=== PATIENT | female | born 1945 | race Caucasian/White ===

== ENCOUNTER 2019-03-24 12:38 | Inpatient (IN) ==
[2019-03-24] MEDS ORDERED: TYLENOL PO PRN ×2 (13:04→21:58)
[2019-03-24] MEDS ORDERED: ZOFRAN IV PRN (13:04)
[2019-03-24] MEDS ORDERED: M.V.I.-12 10 ML, FOLIC ACID 1 MG, MAGNESIUM SULFATE 1 GM, THIAMINE 100 MG in NS 1,000 ML IV ONE (14:00)
[2019-03-24 14:39] LABS: HEMATOCRIT 32.9 % (37.0-47.0); MCH 28.6 PG (27-31); MCHC 33.4 g/dL (33-37); MCV 85.5 FL (81-99); MPV 11.2 FL (7.4-10.4); RBC 3.85 XMIL (4.2-5.4); RDW 12.2 % (11.5-14.5); WBC 6.93 X1000 (4.8-10.8)
[2019-03-24 14:54] LABS: AGAP 11; BUN 25 mg/dL (8-22); CALCIUM 9.5 mg/dL (8.8-10.2); CHLORIDE 97 mmol/L (98-107); COSMO 270; CREATININE 0.5 mg/dL (0.5-0.9); ESTIMATED GFR > 60; GLUCOSE 81 mg/dL (70-104); POTASSIUM 4.4 mmol/L (3.5-5.1); SODIUM 133 mmol/L (136-145); TCO2 25 mmol/L (25-35)
[2019-03-24 17:23] LABS: BILIRUBIN URINE NEGATIVE (NEGATIVE); BLOOD URINE TRACE (NEGATIVE); CLARITY VERY CLOUDY (CLEAR); COLOR YELLOW; GLUCOSE URINE NEGATIVE (NEGATIVE); KETONE URINE NEGATIVE (NEGATIVE); LEUKOCYTES URINE 2+ (NEGATIVE); NITRITE URINE POSITIVE (NEGATIVE); PH URINE 6.5; PROTEIN URINE NEGATIVE (NEGATIVE); SP GRAVITY URINE 1.005; UROBILINOGEN URINE NORMAL
[2019-03-24 17:31] LABS: URINE BACTERIA 3+ /HFP; URINE CAST NONE SEEN /LPF; URINE CRYSTAL NONE SEEN /HPF; URINE EPITHELIAL CELLS <10 /HPF (<10); URINE RBC <10 /HPF (<10); URINE SOURCE CLEAN CATCH; URINE WBC TNTC /HPF (<10); URINE YEAST NONE SEEN /HPF
[2019-03-24] MEDS: CELEXA PO SCH (22:33)
[2019-03-24] MEDS: XANAX PO PRN (22:33)
[2019-03-25 06:24] LABS: HEMATOCRIT 30.4 % (37.0-47.0); HEMOGLOBIN 9.9 g/dL (12.0-16.0); MCHC 32.6 g/dL (33-37); MCV 86.1 FL (81-99); MPV 11.2 FL (7.4-10.4); RBC 3.53 XMIL (4.2-5.4); RDW 12.4 % (11.5-14.5); WBC 5.09 X1000 (4.8-10.8)
[2019-03-25] MEDS: SYNTHROID PO SCH (06:26)
[2019-03-25] MEDS: PRILOSEC PO SCH (06:26)
[2019-03-25 06:30] LABS: AGAP 7; ALBUMIN 3.4 g/dL (3.5-5.0); ALKALINE PHOSPHATASE 60 U/L (32-104); BUN 21 mg/dL (8-22); CALCIUM 9.1 mg/dL (8.8-10.2); CHLORIDE 103 mmol/L (98-107); COSMO 274; CREATININE 0.4 mg/dL (0.5-0.9); ESTIMATED GFR > 60; GLUCOSE 86 mg/dL (70-104); GOT 26 U/L (10-30); GPT 23 U/L (10-36); MAGNESIUM 1.7 mg/dL (1.5-2.7); POTASSIUM 4.2 mmol/L (3.5-5.1); SODIUM 136 mmol/L (136-145); TCO2 27 mmol/L (25-35); TOTAL PROTEIN 6.2 g/dL (6.3-8.3)
[2019-03-25] MEDS ORDERED: ROCEPHIN 1 GM in NS 50 ML IV SCH (06:45)
[2019-03-25] MEDS ORDERED: BENADRYL IV ONE (07:08)
[2019-03-25] MEDS: THERA M PLUS PO SCH (09:20)
[2019-03-25] MEDS: RESTASIS 0.05% OPH DROPS BOTH EYES SCH ×2 (09:20→22:13)
[2019-03-25] MEDS: XANAX PO PRN ×2 (09:48→22:20)
[2019-03-25] MEDS: NORVASC PO SCH (09:48)
--- NOTE | 2019-03-25 19:37 | HISTORY AND PHYSICAL ---
CHIEF COMPLAINT: Fatigue, falling. HISTORY OF PRESENT ILLNESS: The patient is a 73-year-old female who presented to the hospital secondary to frequent falls and fatigue. She has been unable to carry out activities of daily living. She has a known Zenker diverticulum which has to have surgery to fix, but she has been too weak to eat or swallow lately. She notes that she had a great decrease in her oral intake. ALLERGIES: Fish; iodine causing anaphylaxis; penicillin causing nausea; sulfa causing a rash. MEDICATIONS: Xanax, Norvasc 10, Celexa 20, Zocor 20, Restasis eyedrops, Synthroid 88, Cozaar 100. PAST MEDICAL HISTORY: Significant for hypertension, hypothyroidism, chronic anxiety, frequent episodes of depression, high cholesterol. She has had a stroke in the past which has left her with dysarthric speech. She does have difficulty swallowing, initially from her stroke, now exacerbated by her Zenker diverticula. PAST SURGICAL HISTORY: Hysterectomy. REVIEW OF SYSTEMS: As noted above. The patient notes she has had a decreased oral intake. She has had fatigue. No fevers or chills. Denies any dysuria. No frequency or urgency. Denies constipation, melena or hematochezia. Denies chest pain or palpitations. She notes that she has been falling frequently. She has been unable to ambulate secondary to her fatigue. Denies chest pains or palpitations. Denies any change in her focal neurologic issues from her stroke. She does note that her swallowing has continued to worsen. FAMILY HISTORY: She has a family history of hypertension. SOCIAL HISTORY: The patient lives in assisted living. She does not smoke or drink. PHYSICAL EXAMINATION: VITAL SIGNS: Reviewed. She is afebrile. Blood pressure is stable. Heart rate is 80s, respiratory rate 20. GENERAL: The patient is very pleasant to talk with. She is in no respiratory distress. HEENT: Normocephalic. NECK: Supple. CARDIOVASCULAR: Regular rate. No murmurs. CHEST: Clear, nonlabored. ABDOMEN: Soft, nondistended. EXTREMITIES: She is noted to move all extremities with generalized weakness. SKIN: No rashes. LABORATORY DATA: Pending. ASSESSMENT: 1. Generalized weakness with frequent falls. 2. Adult failure to thrive. 3. Decreased oral intake. 4. Zenker diverticulum. 5. Hypertension. 6. Hypothyroidism. 7. High cholesterol. 8. Anxiety and depression. 9. Others. PLAN: We will continue the patient in the hospital, place her on IV fluids. Check her labs. It certainly appears as though she may have a urinary infection. We will place her on antibiotics, and we will follow. cc: Gurinder Wills MD
[2019-03-25] MEDS: CELEXA PO SCH (22:14)
[2019-03-26] MEDS: SYNTHROID PO SCH (06:06)
[2019-03-26] MEDS: PRILOSEC PO SCH (07:20)
[2019-03-26] MEDS ORDERED: LEVAQUIN 500 MG/D5W 500 MG/100 ML IVPB IV ONE (08:30)
[2019-03-26] MEDS ORDERED: M.V.I.-12 10 ML, FOLIC ACID 1 MG, MAGNESIUM SULFATE 1 GM, THIAMINE 100 MG in NS 1,000 ML IV ONE (08:30)
[2019-03-26] MEDS: NORVASC PO SCH (08:51)
[2019-03-26] MEDS: THERA M PLUS PO SCH (08:51)
[2019-03-26] MEDS: RESTASIS 0.05% OPH DROPS BOTH EYES SCH ×2 (08:51→21:40)
[2019-03-26] MEDS: XANAX PO PRN ×2 (08:56→21:43)
[2019-03-26] MEDS ORDERED: LEVAQUIN PO SCH (09:00)
[2019-03-26] MEDS: CELEXA PO SCH (21:40)
--- NOTE | 2019-03-26 23:34 | PROGRESS NOTE ---
DATE: 03/26/2019 SUBJECTIVE: Patient overall notes that she is starting to feel a little bit better. Still feels very tired, fatigued, has not really been out of bed and ambulating. Denies any chest pain, palpitations, fevers or chills. OBJECTIVE/EXAM: Vital signs: Temperature 97.5, pulse 80, respirations 20, BP 135/90. General: Patient is awake, alert. She is pleasant to talk with. She is in no respiratory distress. HEENT: Normocephalic. Neck: Supple. CARDIOVASCULAR: Regular rate. No murmurs. Chest: Nonlabored.. Abdomen: Soft, nondistended. ASSESSMENT: 1. Klebsiella urinary tract infection. 2. Hypothyroidism, TSH is elevated at 0.1. We will decrease her Synthroid. PLAN: Continue antibiotics. Physical therapy. IV fluids and will follow. Hopefully, home over 1 or 2 days. cc: Gurinder Wills MD
[2019-03-27] MEDS: PRILOSEC PO SCH (06:26)
[2019-03-27] MEDS ORDERED: NS 1,000 ML IV SCH (08:15)
[2019-03-27] MEDS: RESTASIS 0.05% OPH DROPS BOTH EYES SCH ×2 (09:40→21:47)
[2019-03-27] MEDS: NORVASC PO SCH (09:40)
[2019-03-27] MEDS: THERA M PLUS PO SCH (09:40)
[2019-03-27] MEDS ORDERED: NS 250 ML IV SCH (09:45)
[2019-03-27] MEDS: LEVAQUIN PO SCH (18:43)
[2019-03-27] MEDS: XANAX PO PRN (21:47)
[2019-03-27] MEDS: CELEXA PO SCH (21:48)
[2019-03-27] MEDS ORDERED: IMODIUM PO PRN (23:06)
[2019-03-27] MEDS: IMODIUM PO PRN (23:42)
--- NOTE | 2019-03-28 00:53 | PROGRESS NOTE ---
DATE: 03/27/2019 SUBJECTIVE: The patient has no new complaints today. She states overall she may be feeling a little bit better. She is still having difficulty swallowing, even liquids. Denies any fevers or chills. OBJECTIVE: Vital Signs: Temperature 98.2, pulse 86, respiratory 18, BP 134/64. General: The patient is awake, alert, in no distress. HEENT: Normocephalic. Neck: Supple. Cardiovascular: Regular rate. Chest: Clear, nonlabored. Abdomen: Soft. Extremities: Moves all extremities. ASSESSMENT: 1. Generalized weakness. 2. Klebsiella urinary tract infection currently on Levaquin. 3. Hyperthyroidism. We will continue to hold Synthroid as his thyroid stimulating is low at 0.1. 4. Adult failure to thrive. 5. Zenckers diverticulum. 6. Hypertension. PLAN: We will continue the patient in the hospital. We will begin making plans for discharge. We will continue Levaquin for a total 7-day course. cc: Gurinder Wills MD MTDD
[2019-03-28] MEDS: PRILOSEC PO SCH (07:37)
[2019-03-28] MEDS: THERA M PLUS PO SCH (08:22)
[2019-03-28] MEDS: NORVASC PO SCH (08:23)
[2019-03-28] MEDS: LEVAQUIN PO SCH (08:32)
[2019-03-28] MEDS: RESTASIS 0.05% OPH DROPS BOTH EYES SCH (08:33)
[2019-03-28] MEDS: IMODIUM PO PRN (09:50)
[2019-03-28 11:23] VITALS: BP 145/61
--- NOTE | 2019-03-29 06:21 | DISCHARGE SUMMARY ---
ADMISSION DATE: 03/24/2019 DISCHARGE DATE: 03/28/2019 DISCHARGE DIAGNOSES: 1. Nausea and vomiting. 2. Abdominal pain. 3. Klebsiella urinary tract infection. 4. Adult failure to thrive. 5. Generalized weakness. 6. Decreased oral intake secondary to Zenker's diverticulum. 7. Zenker's diverticulum. 8. Others. HOSPITAL COURSE: The patient seen and examined by myself, full note dictated and discussed with nurse practitioner. The patient was admitted to the hospital, placed on IV fluids, antibiotics. Thankfully, she had an uneventful hospital course, prolonged secondary to her age and her inability to swallow due to her Zenker's diverticula. We will discharge her home. Please see full note. cc: Gurinder Wills MD
--- NOTE | 2019-03-29 08:05 | DISCHARGE SUMMARY ---
ADMISSION DATE: 03/24/2019 DISCHARGE DATE: 03/28/2019 ADMISSION DIAGNOSES: 1. Generalized weakness with frequent falls. 2. Adult failure to thrive. 3. Decreased oral intake. 4. Zenker diverticulum. 5. Hypertension. 6. Hypothyroidism. 7. Hypercholesterolemia. 8. Anxiety and depression. DISCHARGE DIAGNOSES: 1. Generalized weakness with frequent falls. 2. Adult failure to thrive. 3. Decreased oral intake. 4. Zenker diverticulum. 5. Hypertension. 6. Hypothyroidism. 7. Hypercholesterolemia. 8. Anxiety and depression. 9. Klebsiella urinary tract infection. CONSULTATIONS: None. DIAGNOSTIC PROCEDURES AND FINDINGS: None. HOSPITAL COURSE: Ms. Miguel is a 73-year-old female who presented with frequent falls and fatigue. She has had a difficult time carrying on her activities of daily living. She has been a little too weak to eat or swallow recently. She came into the ER and was noted to have urinary tract infection and was volume depleted. She was admitted and started on antibiotics and IV fluids. With antibiotics, she improved as well as fluids and increased p.o. intake. Overall, she has improved to the point now where she can be discharged home with home health. DISCHARGE MEDICATIONS: 1. Xanax range of 0.25 to 0.5 mg p.o. t.i.d. as needed. 2. Norvasc 10 mg daily. 3. Citalopram 20 mg at bedtime. 4. Zocor 20 mg at bedtime. 5. Restasis 1 drop OP b.i.d. 6. Cozaar 100 mg daily. 7. Centrum Silver 1 daily. 8. Omeprazole 20 mg daily. 9. Tylenol 650 mg p.o. q.4 hours as needed pain or fever. 10.Levaquin p.o. daily for 7 days. DISCHARGE ACTIVITY: Resume activity as tolerated. DISCHARGE DIET: Regular. DISPOSITION AND OTHER DISCHARGE INSTRUCTIONS: The patient has been discharged home with home health. She is to follow up with her PCP who is Dr. Wills as directed. She is to continue antibiotics to completion and return to the ER or call 911 for worsening complaints or concerns. All questions answered. Discharge time greater than 35 minutes. Dictated by CHIRAG Antunez for Gurinder Wills MD cc: Manjeet J. CHIRAG Du MD
== END 2019-03-28 12:01 | disposition home health service (06) | DRG 641 ==
LOC: P.DIRADM 12:38 → P.MEDSURG 13:08
PROVIDERS: ATTEND Family Medicine
CPT/HCPCS: 36415; 80048; 80053; 81001; 82948; 83735; 84443; 85027; 87077; 87088; 87186; 87324; 94761; A9270; J0696; J1200; J1956; J3411; J3475; J7030; J7050; XXXXX

== ENCOUNTER 2019-04-03 11:17 | Inpatient (IN) ==
[2019-04-03 12:25] LABS: BASO# 0.02 X1000 (0.0-0.2); BASO% 0.4 % (0.0-0.8); EOS# 0.14 X1000 (0.0-0.7); EOS% 2.8 % (0.0-10.0); HEMATOCRIT 32.4 % (37.0-47.0); HEMOGLOBIN 10.8 g/dL (12.0-16.0); IMM GRAN# 0.01 X1000 (0.0-0.04); IMM GRAN% 0.2 % (0.0-0.5); LYMPH# 1.54 X1000 (1.2-3.4); LYMPH% 31.1 % (20.5-51.1); MCHC 33.3 g/dL (33-37); MCV 87.1 FL (81-99); MONO# 1.15 X1000 (0.11-0.59); MONO% 23.2 % (1.7-9.3); MPV 11.8 FL (7.4-10.4); NEUT# 2.09 X1000 (1.4-6.5); NEUT% 42.3 % (42.2-75.2); PLT 124 X1000 (130-400); RBC 3.72 XMIL (4.2-5.4); RDW 12.3 % (11.5-14.5); WBC 4.95 X1000 (4.8-10.8)
[2019-04-03 12:43] LABS: AGAP 17; ALBUMIN 3.3 g/dL (3.5-5.0); ALKALINE PHOSPHATASE 56 U/L (32-104); BUN 25 mg/dL (8-22); CALCIUM 9.3 mg/dL (8.8-10.2); CHLORIDE 94 mmol/L (98-107); COSMO 269; CREATININE 0.6 mg/dL (0.5-0.9); ESTIMATED GFR > 60; GLUCOSE 61 mg/dL (70-104); GOT 31 U/L (10-30); GPT 21 U/L (10-36); LIPASE 23 U/L (13-60); POTASSIUM 4.4 mmol/L (3.5-5.1); SODIUM 133 mmol/L (136-145); TCO2 23 mmol/L (25-35); TOTAL PROTEIN 6.8 g/dL (6.3-8.3)
[2019-04-03 14:36] LABS: BILIRUBIN URINE NEGATIVE (NEGATIVE); BLOOD URINE NEGATIVE (NEGATIVE); CLARITY CLEAR (CLEAR); COLOR YELLOW; GLUCOSE URINE NEGATIVE (NEGATIVE); KETONE URINE TRACE mg/dL (NEGATIVE); LEUKOCYTES URINE TRACE (NEGATIVE); NITRITE URINE NEGATIVE (NEGATIVE); PROTEIN URINE NEGATIVE (NEGATIVE); UROBILINOGEN URINE NORMAL
--- NOTE | 2019-04-03 14:45 | PROVIDER DOCUMENTATION ---
This chart was entered by Radha Sweeney Scribe, acting as scribe for Satnam Bustamante MD. HPI-Abdominal Pain/GI Problem - General Chief Complaint: Diarrhea Stated Complaint: MALNOURISHED/DIAREAHA Time Seen by Provider: 04/03/19 12:54 Source: patient Allergies/Adverse Reactions: Patient Allergies Allergy/AdvReac Type Severity Reaction Status Date / Time ceftriaxone [From Rocephin] Allergy ANAPHYLAXIS Verified 03/25/19 07:18 fish derived Allergy ANAPHYLAXIS Verified 04/30/18 13:19 iodine AdvReac ANAPHYLAXIS Verified 04/30/18 13:19 Penicillins AdvReac NAUSEA/VOMI Verified 04/30/18 13:19 TING Sulfa (Sulfonamide AdvReac RASH Verified 04/30/18 13:19 Antibiotics) Home Medications: Home Medication List Medication Instructions Recorded Confirmed Last Taken Type Alprazolam [Xanax] 0.25 - 0.5 mg PO TID PRN 09/27/14 03/24/19 04/12/18 12:00 History Amlodipine [Norvasc] 10 mg PO DAILY 09/27/14 03/24/19 04/12/18 09:00 History Citalopram [Celexa] 20 mg PO HS 09/27/14 03/24/19 04/12/18 09:00 History Simvastatin [Zocor] 20 mg PO QHS 01/14/16 03/24/19 04/11/18 21:00 History Cyclosporine [Restasis] 1 drop OP BID 09/19/17 03/24/19 04/12/18 09:00 History Acetaminophen [Tylenol] 650 mg PO Q4-6H PRN PRN 02/24/18 03/24/19 Unknown History Losartan Potassium [Cozaar] 100 mg PO DAILY 02/24/18 03/26/19 04/12/18 09:00 History Multivitamins/Minerals [Centrum 1 each PO DAILY 02/24/18 03/24/19 04/12/18 09:00 History Silver] Omeprazole [Prilosec] 20 mg PO DAILY@0700 02/24/18 03/24/19 04/12/18 07:00 Histo ry Levofloxacin [Levaquin] 500 mg PO DAILY #7 tab 03/28/19 Unknown Rx - History of Present Illness-ABD Nature of Presenting Problems: Pt is 73/F presenting to ED w/ diarrhea, weakness, no appetite and dehydration that has been present for the last 3 weeks. She was released from [facility] a week ago after having diverticulitis. Pt denies any dark stools. Abdominal Pain Onset Location: reports: other (no pain noted) Quality of Pain: reports: none Severity in ED: reports: moderate Onset/Duration: reports: gradual (started 3 weeks [employer]) Timing: reports: still present Activities at Onset: reports: none Exposure to sick contacts?: No Modifying Factors: improves with: nothing Associated Symptoms: reports: fatigue, loss of appetite, weakness. denies: nausea, shortness of breath, vomiting Last BM: unsure Dark Stools Present?: reports: other (yellow stools present) Rectal Bleeding: reports: none Bruising or Bleeding Gums?: No Similar Symptoms Previously?: No Recently seen or treated by another doctor?: No Review of Systems - Adult - REVIEW OF SYSTEMS - ADULT Constitutional: reports: no symptoms reported. denies: chills, fever Eyes: reports: no symptoms reported Ears, Nose, Mouth & Throat: reports: no symptoms reported Cardiovascular: reports: no symptoms reported Respiratory: reports: no symptoms reported Gastrointestinal: reports: diarrhea. denies: abdominal pain, constipation, nausea, vomiting Genitourinary: reports: no symptoms reported Musculoskeletal: reports: no symptoms reported Integumentary: reports: no symptoms reported Neurological: reports: no symptoms reported Psychiatric: reports: no symptoms reported Endocrine: reports: no symptoms reported Hematologic/Lymphatic: reports: no symptoms reported Allergic/Immunologic: reports: no symptoms reported All Other Systems: Reviewed and Negative Past History - Adult - PAST MEDICAL HISTORY-ADULT Review of Records: reports: Old Records Reviewed, Nursing Assessment Review, Medications Reviewed, Social history reviewed & non-contributory. Major Childhood Illnesses: reports: denies history Cardiovascular: reports: HTN Respiratory: reports: denies history Gastrointestinal: reports: denies history Obstetrical/Gynecological: reports: denies history Genitourinary: reports: denies history Musculoskeletal: reports: denies history Neurological: reports: CVA, stroke deficits (slurred speech, trouble swallowing) Endocrine/Immune: reports: thyroid disorder Other Conditions: reports: denies history - PRIOR SURGERIES/PROCEDURES Surgical/Procedure History: reports: hysterectomy - IMMUNIZATION STATUS Childhood Immunizations: See Nurse Assessment Flu Vaccine: See Nurse Assessment - FAMILY HISTORY Family History: reviewed, not pertinent - SOCIAL HISTORY Smoking: denies, non-smoker Substance Use: none/never Alcohol Use Frequency: never Living Situation: alone Physical Exam-General - PHYSICAL EXAM-ADULT Initial Vital Signs Reviewed: Yes - CONSTITUTIONAL General Appearance: alert, no apparent distress, thin, other (Pt has L sided weakness and speech deficits from prior CVA in 2006) - EYES Eyes: PERRL/EOMI, pink conjunctivae - HEAD, EARS, NOSE, MOUTH & THROAT HENMT: moist mucous membranes - NECK Neck: non-tender, full range of motion, supple, normal inspection - RESPIRATORY Respiratory: lungs clear - CARDIOVASCULAR Cardiovascular: regular rate, rhythm - GASTROINTESTINAL (ABDOMEN) Abdominal Exam: normal bowel sounds, non tender, soft - LYMPHATIC Lymphatic: no adenopathy - MUSCULOSKELETAL Back Exam: normal inspection, no CVA tenderness, no vertebral tenderness Extremity: normal range of motion, non-tender, normal gait, normal inspection - SKIN Integumentary: normal color, warm/dry - NEUROLOGIC Neurologic: grossly normal - PSYCHIATRIC Psych/Mental Status: normal mood/affect, normal thought content, normal thought process, oriented x 3 Progress - PLAN OF CARE/RESULTS Progress/Plan/Lab Results: Vital Signs - 8 hr 04/03/19 11:22 04/03/19 11:44 Temperature 99.3 F 98.8 F Pulse Rate 85 87 Respiratory Rate 18 20 Blood Pressure 109/58 133/73 O2 Sat by Pulse Oximetry 96 97 Laboratory Results - last 24 hr 04/03/19 04/03/19 04/03/19 12:00 12:00 12:00 WBC 4.95 RBC 3.72 L Hgb 10.8 L Hct 32.4 L MCV 87.1 MCH 29.0 MCHC 33.3 RDW Std Deviation 12.3 Plt Count 124 L MPV 11.8 H Immature Gran % (Auto) 0.2 Neut % (Auto) 42.3 Lymph % (Auto) 31.1 Armstrong % (Auto) 23.2 H Eos % (Auto) 2.8 Baso % (Auto) 0.4 Immature Gran # (Auto) 0.01 Neut # (Auto) 2.09 Lymph # (Auto) 1.54 Armstrong # (Auto) 1.15 H Eos # (Auto) 0.14 Baso # (Auto) 0.02 Sodium 133 L Potassium 4.4 Chloride 94 L Carbon Dioxide 23 L Anion Gap 17 BUN 25 H Creatinine 0.6 Estimated GFR/1.73 m2 > 60 BUN/Creatinine Ratio 42 Glucose 61 L Calculated Osmolality 269 Calcium 9.3 Total Bilirubin 0.50 AST 31 H ALT 21 Alkaline Phosphatase 56 Total Protein 6.8 Albumin 3.3 L Globulin 4.0 Albumin/Globulin Ratio 1.0 Amylase 48 Lipase 23 Orders Category Date Time Status Saline Loc DIRECTED Care 04/03/19 12:13 Active NPO Diet 04/03/19 12:13 Active AMYLASE [CHEM] Stat Lab 04/03/19 12:00 Completed CBC WITH ELECTRONIC DIFF [HEME] Stat Lab 04/03/19 12:00 Completed COMPREHENSIVE METABOLIC PANEL [CHEM] Stat Lab 04/03/19 12:00 Completed LIPASE [CHEM] Stat Lab 04/03/19 12:[address] W/POSS RFLX CULT [URINALYSIS] Stat Lab 04/03/19 12:13 Uncollected Result Diagrams: 04/03/19 12:00 04/03/19 12:00 - CONSULTS/PCP/HOSPITALIST Notification #1 *Consult/PCP/Hospitalist*: MARIA C Time Discussed: 14:44 Consult Disposition: Admit Departure - Departure Date of Disposition Decision: 04/03/19 Time of Disposition Decision: 14:44 DIAGNOSIS: Weakness, Diarrhea, Failure of outpatient treatment, Difficulty swallowing Disposition: ADMITTED INPATIENT 09 Certified Medical Emergency: Emergent Condition: Stable - Critical Care Note This patient required my direct & personal management of CC.: No Attestation - Physician/ ESTUARDO Attestation Patient care was provided by Advanced Practice Provider:: No The physician spent face to face time with patient:: Yes Advanced Practice Provider documentation review:: Supervising physician onsite and consulted in the evaluation and care of this patient. The physician did have a face to face encounter with the patient. This chart was documented by the indicated scribe, (Radha Sweeney Scribe) and accurately reflects the services I performed and decisions made by me, Satnam Bustamante MD, as attested by the provider's signature.
[2019-04-03 14:48] LABS: URINE BACTERIA 1+ /HFP; URINE CAST NONE SEEN /LPF; URINE CRYSTAL NONE SEEN /HPF; URINE EPITHELIAL CELLS <10 /HPF (<10); URINE SOURCE CATH; URINE WBC <10 /HPF (<10); URINE YEAST NONE SEEN /HPF
[2019-04-03] MEDS: NS 1,000 ML IV SCH (21:11)
[2019-04-03] MEDS: TYLENOL PO PRN (23:28)
--- NOTE | 2019-04-04 10:48 | HISTORY AND PHYSICAL ---
CHIEF COMPLAINT: Nausea. HISTORY OF PRESENT ILLNESS: The patient is a 73-year-old female who was just in the hospital for urinary tract infection. She has a known history of cerebrovascular accident with expressive aphasia as well as esophageal dysmotility, and a known Zenker's diverticulum. She was admitted, and then placed on antibiotics, and tolerated that okay. She was drinking on discharge. However, after getting home, she states that she has not been able to eat or drink. She has been having diarrhea every day. She has been having vomiting, and generalized fatigue. She states she has been lightheaded and having difficulty carrying out her activities of daily living. SOCIAL HISTORY: Patient is a . She lives at home. She does not smoke or drink. ALLERGIES: Rocephin. Fish causing anaphylaxis. Iodine causing anaphylaxis. Penicillin causing nausea and vomiting. Sulfa causing a rash. MEDICATIONS: 1. Xanax 3 times a day p.r.n. 2. Norvasc 10 mg. 3. Celexa 20 mg. 4. Zocor 20 mg. 5. Restasis eyedrops. 6. Tylenol p.r.n. 7. Cozaar 100. 8. Losartan 100 mg daily. 9. Multivitamin. 10. She was on Synthroid 88, that has recently been stopped as her TSH was elevated. FAMILY HISTORY: Noncontributory. PAST MEDICAL HISTORY: Significant for hypothyroidism, hypertension, chronic anxiety, depression, history of cerebrovascular accident with expressive aphasia, esophageal dysmotility, Zenker's diverticulum, and adult failure to thrive. REVIEW OF SYSTEMS: As noted above, the patient complains of persistent nausea and persistent vomiting. She states everything she eats and everything she drinks, she throws back up. States she has been unable to keep anything down for several days. Denies any fevers or chills recently. Denies any cough or congestion from a upper respiratory standpoint. She does state that she frequently has a cough after she eats. Denies any urinary complications. Denies any dysuria, frequency, urgency, constipation, melena, or hematochezia. Denies blood in her stool, or blood in her emesis. States she has diarrhea every day. Denies any skin rashes. PHYSICAL EXAMINATION: VITAL SIGNS: Reviewed and stable. She is afebrile. Temperature 99.3 degrees, pulse 85, respiratory 20, BP 109/58 to 133/73, and satting 96 to 97% on room air. GENERAL: Patient is awake and alert. She is in no current respiratory distress. HEENT: Normocephalic. NECK: Supple. CARDIOVASCULAR: Regular rate and rhythm. No murmurs. LUNGS: Chest clear and nonlabored. ABDOMEN: Soft. Nondistended. EXTREMITIES: Moves all extremities. NEUROLOGIC: No focal changes. ASSESSMENT: 1. Nausea and vomiting. 2. Hyponatremia. 3. Recent urinary tract infection. We will repeat urine culture. We will not restart antibiotics until culture is returned. 4. Hyperglycemia. Blood sugars 61. 5. Hypertension. Blood pressures actually are fairly well-controlled despite not being or medications. 6. History of cerebrovascular accident with expressive aphasia. 7. Esophageal dysmotility. 8. Diarrhea. 9. Generalized weakness. PLAN: We will continue patient in the hospital, place her on IV fluids. We will not start antibiotics currently. We will continue to follow, and get physical therapy involved. We will check stool for C. Diff. cc: Gurinder Wills MD
[2019-04-04] MEDS: THERA M PLUS PO SCH (11:06)
[2019-04-04] MEDS: DETROL LA PO SCH (11:07)
[2019-04-04] MEDS: XANAX PO PRN ×2 (11:07→20:12)
[2019-04-04] MEDS: ZOFRAN ODT PO PRN ×2 (11:07→20:12)
[2019-04-04] MEDS: NS 1,000 ML IV SCH (11:23)
--- NOTE | 2019-04-04 14:27 | PROGRESS NOTE ---
DATE: 04/04/2019 SUBJECTIVE: Patient has no new complaints. States she is still tired and fatigued. Denies any chest pain, palpitations. Denies any fevers or chills. PHYSICAL EXAMINATION: Vital signs: Temperature 98 degrees, pulse 79, respiratory 20, blood pressure 127/46. General: Patient is awake, alert. She is in no current respiratory distress, lying in the bed asleep, easily awakened. HEENT: Normocephalic. Neck: Supple. Cardiovascular: Regular rate. Chest: Clear. Abdomen: Soft. Extremities: Moves all extremities although generalized weakness. ASSESSMENT: 1. Generalized weakness with adult failure to thrive. 2. Nausea with poor oral intake. 3. Mild protein calorie malnutrition. 4. Pancreas diverticulum. 5. Cerebrovascular accident with expressive aphasia and esophageal dysmotility. 6. Anxiety and depression creating mild issues with her current chronic symptoms. PLAN: 1. We will continue patient in the hospital. Continue her antidepressant. We will hold her blood pressure medications currently as her blood pressure actually has been relatively good without her current medications. We will repeat a urine culture as she just was in the hospital for a urinary infection. Culture and sensitivity currently is pending. 2. We will get Physical Therapy involved. We will continue IV fluids and encourage oral intake. cc: Gurinder Wills MD
[2019-04-04] MEDS: ZOCOR PO SCH (20:12)
[2019-04-04] MEDS: CELEXA PO SCH (20:12)
[2019-04-05] MEDS: NS 1,000 ML IV SCH (06:07)
[2019-04-05] MEDS: PRILOSEC PO SCH (06:27)
[2019-04-05 07:15] LABS: HEMATOCRIT 28.3 % (37.0-47.0); HEMOGLOBIN 9.1 g/dL (12.0-16.0); MCH 27.8 PG (27-31); MCHC 32.2 g/dL (33-37); MCV 86.5 FL (81-99); MPV 12.6 FL (7.4-10.4); RBC 3.27 XMIL (4.2-5.4); RDW 12.2 % (11.5-14.5); WBC 5.12 X1000 (4.8-10.8)
[2019-04-05 07:34] LABS: AGAP 11; ALBUMIN 2.9 g/dL (3.5-5.0); ALKALINE PHOSPHATASE 48 U/L (32-104); BUN 13 mg/dL (8-22); CALCIUM 8.3 mg/dL (8.8-10.2); CHLORIDE 103 mmol/L (98-107); COSMO 273; CREATININE 0.4 mg/dL (0.5-0.9); ESTIMATED GFR > 60; GLUCOSE 77 mg/dL (70-104); GOT 21 U/L (10-30); GPT 16 U/L (10-36); MAGNESIUM 1.4 mg/dL (1.5-2.7); POTASSIUM 4.4 mmol/L (3.5-5.1); SODIUM 137 mmol/L (136-145); TCO2 24 mmol/L (25-35); TOTAL PROTEIN 5.4 g/dL (6.3-8.3)
[2019-04-05] MEDS ORDERED: MAGNESIUM SULFATE 2 GM/S.W.I. 2 GM/50 ML IVPB IV ONE (08:50)
[2019-04-05] MEDS ORDERED: NS 1,000 ML IV ONE (08:51)
[2019-04-05] MEDS: THERA M PLUS PO SCH (09:40)
[2019-04-05] MEDS: DETROL LA PO SCH (09:40)
[2019-04-05] MEDS: CELEXA PO SCH (20:01)
[2019-04-05] MEDS: ZOFRAN ODT PO PRN (20:01)
[2019-04-05] MEDS: XANAX PO PRN (20:01)
[2019-04-05] MEDS: ZOCOR PO SCH (20:01)
[2019-04-05] MEDS: TYLENOL PO PRN (20:01)
[2019-04-06] MEDS: TYLENOL PO PRN ×3 (02:58→18:28)
[2019-04-06] MEDS: PRILOSEC PO SCH (06:54)
[2019-04-06] MEDS: DETROL LA PO SCH (09:14)
[2019-04-06] MEDS: THERA M PLUS PO SCH (09:14)
--- NOTE | 2019-04-06 11:32 | PROGRESS NOTE ---
DATE: 04/05/2019 SUBJECTIVE: Patient without any complaints. States she is still tired, fatigued, still having difficulty swallowing. Denies any diarrhea since she has been in the hospital. OBJECTIVE: Vitals: Temperature 99, pulse 88, respiratory 20, blood pressure 145/58. General: Patient is awake, alert, no distress, elderly appearing female. HEENT: Normocephalic. Neck: Supple. Cardiovascular: Regular rate. Chest: Clear, nonlabored. Abdomen: Soft, nondistended. Extremities: Moves all extremities. ASSESSMENT: 1. Nausea secondary to dysphagia from previous cerebrovascular accident as well as increased diverticulum. 2. Dysphagia. 3. Previous cerebrovascular accident. 4. Diarrhea, although the patient has not had any she has been in the hospital. 5. Recent urinary tract infection. Urine culture currently is negative. 6. Hypertension. Blood pressure is mildly elevated. We will restart half of her blood pressure medication. 7. Adult failure to thrive with malnutrition. We will continue to encourage oral intake. We will stop her IV fluids currently and we will follow. cc: Gurinder Wills MD
[2019-04-06] MEDS: ZOFRAN ODT PO PRN (12:09)
[2019-04-06] MEDS ORDERED: IMODIUM PO PRN (12:39)
--- NOTE | 2019-04-06 13:20 | PROGRESS NOTE ---
DATE: 04/06/2019 SUBJECTIVE: Patient notes her diarrhea started back. She is drinking some but not very much. Denies any fevers or chills. Denies any blood in her stool or urine. PHYSICAL EXAMINATION: Vital Signs: Reviewed. She is awake, alert. She is afebrile. Blood pressure is stable. Heart rate 80s. General: Patient is in no current respiratory distress. She is pleasant to talk with. HEENT: Normocephalic and atraumatic. KENDALL. Neck: Supple. No JVD. Cardiovascular: Regular rate. Chest: Clear. Abdomen: Soft. Extremities: Moves all extremities. ASSESSMENT: 1. Nausea and vomiting, resolved but the patient also has had very little oral intake. 2. Diarrhea. 3. History of cerebrovascular accident. 4. Adult failure to thrive. PLAN: We will continue the patient in the hospital. We will attempt to give Dr. Snider office a phone call tomorrow to see if they can speed up her surgery. Otherwise, I expect that if she is discharged home, she will be back in the ER prior to surgery. cc: Gurinder Wills MD MTDD
[2019-04-06] MEDS: ZOCOR PO SCH (22:25)
[2019-04-06] MEDS: CELEXA PO SCH (22:25)
[2019-04-06] MEDS: XANAX PO PRN (22:29)
--- NOTE | 2019-04-06 22:33 | EKG Report ---
Test Performed on : 04/06/2019 8:22:02 PM Test Reason : htn Blood Pressure : / mmHG Vent. Rate : 075 BPM Atrial Rate : 075 BPM P-R Int : 192 ms QRS Dur : 110 ms QT Int : 392 ms P-R-T Axes : 060 -47 009 degrees QTc Int : 437 ms Sinus rhythm. with premature atrial complexes. Left axis deviation Anterior infarct (cited on or before 24-FEB-2018) Abnormal ECG When compared with ECG of 24-FEB-2018 07:18, premature atrial complexes. are now present Non-specific change in ST segment in Lateral leads T wave inversion no longer evident in Lateral leads Confirmed by Josep Villa MD ([id number]) on 04/10/2019 10:29:37 AM
[2019-04-07] MEDS: PRILOSEC PO SCH (06:06)
[2019-04-07] MEDS: TYLENOL PO PRN ×3 (06:06→21:44)
[2019-04-07] MEDS: DETROL LA PO SCH (08:43)
[2019-04-07] MEDS: XANAX PO PRN ×2 (08:43→21:44)
[2019-04-07] MEDS: THERA M PLUS PO SCH (08:43)
--- NOTE | 2019-04-07 14:18 | PROGRESS NOTE ---
DATE: 04/07/2019 SUBJECTIVE: Patient states that she is still having trouble swallowing. Is unsure how much she drank yesterday, does not think she ate yesterday. Has not been out of bed either. PHYSICAL EXAM: Vital signs reviewed. She is awake, alert. Temperature is stable, she is afebrile, pulse 80s, respiratory 20. General: Patient is elderly female who currently is in no respiratory distress pleasant to talk with. HEENT: Normocephalic. Neck: Supple. Cardiovascular: Regular rate. No murmurs. Chest: Clear. Abdomen: Soft. Extremities: Moves all extremities. Neuro: No focal changes. ASSESSMENT: 1. Nausea, vomiting. 2. Adult failure to thrive. 3. Generalized weakness. 4. History of cerebrovascular accident causing dysphagia. PLAN: Continue patient in the hospital today. Continue IV fluids for 1 more liter and hopefully discharge to rehab tomorrow. cc: Gurinder Wills MD
[2019-04-07] MEDS: ZOFRAN ODT PO PRN (15:47)
[2019-04-07] MEDS: ZOCOR PO SCH (21:44)
[2019-04-07] MEDS: CELEXA PO SCH (21:44)
[2019-04-08] MEDS: PRILOSEC PO SCH (06:02)
--- NOTE | 2019-04-08 06:45 | DISCHARGE SUMMARY ---
ADMISSION DATE: 04/03/2019 DISCHARGE DATE: 04/08/2019 DISCHARGE DIAGNOSES: 1. Nausea vomiting. Still problematic but improving. 2. Dehydration due to poor oral intake. 3. Dysphagia secondary to previous cerebrovascular accident as well as Zenker's diverticulum. 4. History of cerebrovascular accident. 5. Hypothyroidism with current hyperthyroidism iatrogenically induced. We have held her Synthroid. 6. Diarrhea. Clostridium difficile negative. 7. Hypertension. CONSULTATIONS: None. PROCEDURES: None. BRIEF HOSPITAL COURSE: Patient is a 73-year-old female who presented to [facility] secondary to volume depletion. She has a known history of dysphagia which creates difficulty with her swallowing and eventually will require a feeding tube. She has scheduled surgery with Dr. Radford for a Zenker's diverticulum. Hopefully, this will improve some of her symptoms. If not, will need to be referred to GI for feeding tube. While in the hospital, patient has been able to drink small amounts at a time. We have discussed with her again to drink and eat small bites throughout the day as opposed to attempting to sit down to a large meal. Overall, she is stable. DISPOSITION: Patient will be discharged to rehab. Hopefully, she will be able to maintain her oral intake until she has surgery with ENT. No changes were made on her diet or activity otherwise. She will continue her same home medications without any changes. Greater than 30 minutes was spent in discharge planning and care. All of her labs are normal. cc: Gurinder Wills MD
[2019-04-08] MEDS: XANAX PO PRN ×2 (08:08→20:45)
[2019-04-08] MEDS: THERA M PLUS PO SCH (08:08)
[2019-04-08] MEDS: VANCOCIN PO SCH ×3 (08:08→20:29)
[2019-04-08] MEDS: NS 1,000 ML IV SCH (08:08)
[2019-04-08] MEDS: DETROL LA PO SCH (08:08)
[2019-04-08 08:13] LABS: HEMATOCRIT 30.9 % (37.0-47.0); HEMOGLOBIN 10.3 g/dL (12.0-16.0); MCH 28.4 PG (27-31); MCHC 33.3 g/dL (33-37); MCV 85.1 FL (81-99); MPV 10.8 FL (7.4-10.4); RBC 3.63 XMIL (4.2-5.4); RDW 12.2 % (11.5-14.5); WBC 7.69 X1000 (4.8-10.8)
[2019-04-08] MEDS: ZOFRAN ODT PO PRN (08:16)
[2019-04-08 08:45] LABS: AGAP 13; ALBUMIN 3.2 g/dL (3.5-5.0); ALKALINE PHOSPHATASE 58 U/L (32-104); BUN 10 mg/dL (8-22); CALCIUM 8.5 mg/dL (8.8-10.2); CHLORIDE 101 mmol/L (98-107); COSMO 274; CREATININE 0.4 mg/dL (0.5-0.9); ESTIMATED GFR > 60; GLUCOSE 84 mg/dL (70-104); GOT 17 U/L (10-30); GPT 16 U/L (10-36); MAGNESIUM 1.3 mg/dL (1.5-2.7); POTASSIUM 4.2 mmol/L (3.5-5.1); SODIUM 138 mmol/L (136-145); TCO2 25 mmol/L (25-35); TOTAL PROTEIN 5.7 g/dL (6.3-8.3)
--- NOTE | 2019-04-08 10:01 | Diag Imaging Result Doc PS360 ---
EXAM: CHEST-1 VIEW - 04/08/2019 HISTORY: pna TECHNIQUE: Portable chest COMPARISON: 02/24/2018 FINDINGS: Heart size is normal. Inspiration is mildly shallow. There are stable small granuloma from old granulomatous disease at the right apex. There is mild scarring at the lateral left base. The lungs appear clear of acute changes. There is no pleural effusion or pneumothorax identified. IMPRESSION: Mildly shallow inspiration. No other evidence of acute disease. Electronically signed by Bebeto Iglesias 04/08/2019 9:59 AM
[2019-04-08] MEDS ORDERED: MAGNESIUM SULFATE 2 GM/S.W.I. 2 GM/50 ML IVPB IV ONE (17:31)
[2019-04-08] MEDS: CELEXA PO SCH (20:29)
[2019-04-08] MEDS: ZOCOR PO SCH (20:29)
[2019-04-09] MEDS: VANCOCIN PO SCH ×4 (02:08→21:57)
[2019-04-09] MEDS: NS 1,000 ML IV SCH (02:46)
--- NOTE | 2019-04-09 06:39 | PROGRESS NOTE ---
DATE: 04/08/2019 SUBJECTIVE: Patient notes her nausea is a little bit worse today than it had been. She said she could not keep anything down yesterday. Did have some fever yesterday as well. States that she is still having diarrhea every day, although staff notes that this does not seem to be the case. OBJECTIVE: Vital Signs: Febrile. Current T-max of 101. Pulse 107. Respiratory 18. Blood pressure 163/64. The patient is awake, and alert. Currently she is in no distress. She is asleep, easily awakens. HEENT: Normocephalic, atraumatic. Cardiovascular: Regular rhythm. Chest clear. Abdomen: Soft. Extremities: Moves all extremities. ASSESSMENT: 1. Clostridium difficile positive. 2. Nausea and vomiting. 3. Febrile illness. 4. Hyponatremia. 5. Hypothyroidism. TSH is elevated at 0.01, will continue to hold her Synthroid. 6. Hypomagnesemia. Will continue to treat in place. PLAN: Patient overall is improving. Once we get control of the fever we will check blood culture, urine culture, chest x-ray. Will continue to treat her Clostridium difficile, which certainly can be causing her fever. And will will follow. cc: Gurinder Wills MD
[2019-04-09] MEDS: PROTONIX PO SCH (06:40)
[2019-04-09] MEDS: THERA M PLUS PO SCH (08:33)
[2019-04-09] MEDS: ZOFRAN ODT PO PRN (08:33)
[2019-04-09] MEDS: XANAX PO PRN ×2 (08:33→22:07)
[2019-04-09] MEDS: DETROL LA PO SCH (08:33)
--- NOTE | 2019-04-09 21:14 | PROGRESS NOTE ---
DATE: 04/09/2019 SUBJECTIVE: Patient has no complaints other than her chronic nausea. She has not had any fever. PHYSICAL EXAMINATION: Vital Signs: Reviewed. T-max 101 yesterday, T current 99, pulse 90s, respiratory 20, BP 111/53. General: Patient is awake. She is in no distress. HEENT: Normocephalic. Neck: Supple. Cardiovascular: Regular rate. Chest: Clear. Abdomen: Soft, nondistended. Extremities: Moves all extremities. ASSESSMENT: 1. Clostridium difficile colitis. 2. Febrile illness, likely secondary to her Clostridium difficile colitis. Her chest x-ray and her urine culture are negative. We will continue oral vancomycin. 3. Hypomagnesemia, replaced. 4. Hyperthyroidism. 5. Others. PLAN: Overall continue oral vancomycin. Continue fluid resuscitation. Follow her other chronic problems. Further orders as needed. cc: Gurinder Wills MD
[2019-04-09] MEDS: ZOCOR PO SCH (21:56)
[2019-04-09] MEDS: CELEXA PO SCH (21:56)
[2019-04-10] MEDS: TYLENOL PO PRN (00:52)
[2019-04-10] MEDS: VANCOCIN PO SCH ×4 (02:42→19:45)
[2019-04-10] MEDS: PROTONIX PO SCH (06:14)
[2019-04-10 09:03] LABS: HEMATOCRIT 30.3 % (37.0-47.0); HEMOGLOBIN 9.9 g/dL (12.0-16.0); MCH 28.1 PG (27-31); MCHC 32.7 g/dL (33-37); MCV 86.1 FL (81-99); MPV 10.5 FL (7.4-10.4); RBC 3.52 XMIL (4.2-5.4); RDW 12.5 % (11.5-14.5); WBC 4.16 X1000 (4.8-10.8)
[2019-04-10 09:16] LABS: AGAP 13; ALBUMIN 3.1 g/dL (3.5-5.0); ALKALINE PHOSPHATASE 58 U/L (32-104); BUN 7 mg/dL (8-22); CHLORIDE 102 mmol/L (98-107); COSMO 274; CREATININE 0.4 mg/dL (0.5-0.9); ESTIMATED GFR > 60; GLUCOSE 69 mg/dL (70-104); GOT 27 U/L (10-30); GPT 19 U/L (10-36); MAGNESIUM 1.4 mg/dL (1.5-2.7); POTASSIUM 3.6 mmol/L (3.5-5.1); SODIUM 139 mmol/L (136-145); TCO2 25 mmol/L (25-35); TOTAL PROTEIN 6.2 g/dL (6.3-8.3)
[2019-04-10] MEDS: THERA M PLUS PO SCH (09:53)
[2019-04-10] MEDS: DETROL LA PO SCH (09:53)
[2019-04-10] MEDS ORDERED: MAGNESIUM SULFATE 2 GM/S.W.I. 2 GM/50 ML IVPB IV ONE (17:35)
[2019-04-10] MEDS: ZOFRAN ODT PO PRN (19:29)
[2019-04-10] MEDS: XANAX PO PRN (19:55)
[2019-04-10] MEDS: ZOCOR PO SCH (20:45)
[2019-04-10] MEDS: CELEXA PO SCH (20:46)
--- NOTE | 2019-04-10 22:09 | PROGRESS NOTE ---
DATE: 04/10/2019 SUBJECTIVE: Patient notes that she is feeling a little bit better. She is having no current fevers. PHYSICAL EXAMINATION: Vital Signs: Reviewed. Temperature 97.4, pulse 84, respiratory 18, BP 131/55. General: Patient is awake, alert. She is in no distress. HEENT: Normocephalic. Neck: Supple. Cardiovascular: Regular rate. Chest: Clear. Abdomen: Soft, nondistended. Extremities: Moves all extremities. ASSESSMENT: 1. Febrile illness. She has been afebrile for the past 36 hours, likely secondary to Clostridium difficile. 2. Clostridium difficile colitis. Continue p.o. vancomycin. 3. Nausea and vomiting. 4. Diarrhea, improved. 5. Adult failure to thrive. 6. Hyperthyroidism. We will continue to hold her Synthroid. 7. Hypomagnesemia. Will replace. PLAN: We will continue patient in the hospital. Adjust medicines as needed. Recheck C difficile and follow. cc: Gurinder Wills MD
[2019-04-11] MEDS: VANCOCIN PO SCH ×5 (01:03→19:50)
[2019-04-11] MEDS: TYLENOL PO PRN ×2 (01:59→18:29)
[2019-04-11] MEDS: PROTONIX PO SCH (06:04)
[2019-04-11] MEDS: COZAAR PO SCH (11:03)
[2019-04-11] MEDS: THERA M PLUS PO SCH (11:04)
[2019-04-11] MEDS: DETROL LA PO SCH (11:04)
[2019-04-11] MEDS: XANAX PO PRN ×2 (11:19→22:00)
--- NOTE | 2019-04-11 14:47 | DISCHARGE SUMMARY ---
ADMISSION DATE: 04/03/2019 DISCHARGE DATE: 04/11/2019 ADDENDUM TO DISCHARGE SUMMARY: Today patient is feeling much better. She has been afebrile for the past 48 hours. She currently is C diff negative. We will continue vancomycin p.o. for the next 7 days to ensure clearing of her C-diff. We had planned on discharging a few days ago and then her diarrhea worsened. She started having fever. At that point her C diff finally returned as positive. Since that time, she is now eating and drinking better. She is still having some nausea, but this is to be expected and I doubt that it improves until she has surgical intervention. Overall, she is much more stable. DISPOSITION: Patient will be discharged to rehab at this point. She will continue p.o. vancomycin for another 7 days. She will continue to hold her Synthroid as her TSH is elevated and may ultimately require workup of hyperthyroidism if her TSH does not improved after holding her Synthroid for a few days. cc: Gurinder Wills MD
[2019-04-11] MEDS: ZOFRAN ODT PO PRN (15:44)
[2019-04-11] MEDS: ZOCOR PO SCH (22:01)
[2019-04-11] MEDS: CELEXA PO SCH (22:01)
[2019-04-12] MEDS: VANCOCIN PO SCH ×3 (01:05→13:43)
[2019-04-12] MEDS: PROTONIX PO SCH (06:07)
[2019-04-12] MEDS: TYLENOL PO PRN (06:14)
[2019-04-12 06:17] VITALS: BP 152/66
[2019-04-12] MEDS: DETROL LA PO SCH (09:25)
[2019-04-12] MEDS: COZAAR PO SCH (09:25)
[2019-04-12] MEDS: THERA M PLUS PO SCH (09:25)
--- NOTE | 2019-04-12 21:49 | PROGRESS NOTE ---
DATE: 04/11/2019 SUBJECTIVE: Patient has no complaints today. States she is still having some nausea, but this is unchanged. Denies any fevers or chills. PHYSICAL EXAMINATION: Vital Signs: Temperature 97.7 degrees, pulse 90, respiratory rate 18, BP 179/62. General: Patient is awake, currently in no distress. HEENT: Normocephalic. Neck: Supple. Cardiovascular: Regular rate. No murmurs. Chest: Clear. Abdomen: Soft, nondistended. Extremities: Moves all extremities. ASSESSMENT: 1. Nausea, vomiting. 2. Abdominal pain. 3. Zenker's diverticulum. 4. Clostridium difficile colitis, improving. PLAN: We will continue patient in the hospital today. Hopefully, she can get a rehab bed today. If so, we will discharge her. cc: Gurinder Wills MD
--- NOTE | 2019-04-12 21:51 | PROGRESS NOTE ---
DATE: 04/12/2019 SUBJECTIVE: Patient has no new complaints. PHYSICAL EXAMINATION: Vital Signs: Reviewed. She is awake, alert. Temperature 97.7 degrees, pulse 85, respiratory 18, BP 156/66. General: Patient is lying in the bed still sleep at 9 in the morning. She awakens easily. HEENT: Normocephalic, atraumatic. Neck: Supple. Cardiovascular: Regular rate. Chest: Clear. Abdomen: Soft, nondistended. ASSESSMENT: 1. Clostridium difficile colitis. Her recent C diff was negative. We will continue vancomycin for a total of 7-day course. 2. Recent pneumonia. 3. Chronic anxiety. 4. Adult failure to thrive. 5. Hypertension. 6. Chronic dysphagia secondary to cerebrovascular accident and Zenker's diverticula. PLAN: We will continue patient in the hospital. Hopefully, she can transition to rehab soon. No changes will be made in her chronic home medications with the exception of continue to hold her Synthroid since her TSH has been elevated. cc: Gurinder Wills MD
== END 2019-04-12 15:38 | DRG 372 ==
LOC: P.ED 11:17 → P.MEDSURG 15:08 → SUATTDRO 15:08 → SUPCPDRO 15:08 → P.MEDSURG 04-09 08:37
PROVIDERS: ADMIT Family Medicine; ATTEND Family Medicine
CPT/HCPCS: 51701; 71010; 71045; 80053; 81001; 82150; 82948; 83690; 83735; 84439; 84443; 85025; 85027; 87088; 87324; 93005; 93010; 94761; 97116; 97163; 97530; 99285; A9270; J3475; J7030; P9612; XXXXX

== ENCOUNTER 2019-10-02 11:02 | Inpatient (IN) ==
[2019-10-17 12:10] VITALS: BP 132/51
== END 2019-10-17 17:52 | disposition swing bed (61) | DRG 641 ==
LOC: P.ED 11:02 → P.MEDSURG 11:02 → OBSVTOIN 15:32 → SUATTDRO 15:32 → 1N 10-11 15:38
PROVIDERS: ATTEND Internal Medicine

== ENCOUNTER 2019-11-18 17:27 | Inpatient (IN) ==
--- NOTE | 2019-11-18 18:08 | PROVIDER DOCUMENTATION ---
HPI-Abdominal Pain/GI Problem - General Stated Complaint: ABD PAIN/WEAKNESS Time Seen by Provider: 11/18/19 17:55 Source: patient, other (friend, neighbor) Allergies/Adverse Reactions: Patient Allergies Allergy/AdvReac Type Severity Reaction Status Date / Time ceftriaxone [From Rocephin] Allergy ANAPHYLAXIS Verified 11/18/19 22:28 fish derived Allergy ANAPHYLAXIS Verified 11/18/19 22:28 levofloxacin [From Levaquin] Allergy Unknown Verified 11/18/19 22:28 iodine AdvReac ANAPHYLAXIS Verified 11/18/19 22:28 Penicillins AdvReac NAUSEA/VOMI Verified 11/18/19 22:28 TING Sulfa (Sulfonamide AdvReac RASH Verified 11/18/19 22:28 Antibiotics) Home Medications: Home Medication List Medication Instructions Recorded Confirmed Last Taken Type Amlodipine Besylate 10 mg PO DAILY 10/02/19 11/18/19 11/17/19 History B12/Iodin/Mag/Zinc/Fay/[id number] 1 tab PO DAILY 10/02/19 11/18/19 11/17/19 History [Adrenoid Capsule] Cyclosporine [Restasis] 1 dose TOP DIRECTED 10/02/19 11/18/19 11/17/19 History Losartan [Cozaar] 100 mg PO DAILY 10/02/19 11/18/19 11/17/19 History Melatonin 5 mg PO DAILY 10/02/19 11/18/19 11/17/19 History Multivitamins/Minerals [Centrum 1 tab PO DAILY 10/02/19 11/18/19 11/17/19 History Silver] Omeprazole 1 tab PO DAILY 10/02/19 11/18/19 11/17/19 History Simvastatin 20 mg PO DAILY 10/02/19 11/18/19 11/17/19 History Sucralfate [Carafate] 1 gm PO BID 10/02/19 11/18/19 11/17/19 History Tolterodine L.a. [Detrol LA] 2 mg PO DAILY 10/02/19 11/18/19 11/17/19 History Acetaminophen [Tylenol] 650 mg PO Q6H PRN PRN tab 10/17/19 11/18/19 11/17/19 Rx Citalopram [Celexa] 40 mg PO DAILY #30 tab 10/17/19 11/18/19 11/17/19 Rx Guaifenesin/Dm E.r. [Mucinex Dm] 1 ea PO BID PRN PRN tab 10/17/19 11/18/19 11/17/19 Rx Methimazole [Tapazole] 5 mg PO BID #60 tab 10/17/19 11/18/19 11/17/19 Rx Methocarbamol [Robaxin] 500 mg PO TID PRN PRN #20 tab 10/17/19 11/18/19 11/17/19 Rx Metoprolol Succinate E.r. [Toprol 25 mg PO DAILY #90 tab 10/17/19 11/18/19 11/17/19 Rx Xl] Polyethylene Glycol 3350 [Miralax] 17 gm PO BID PRN PRN powder, 10/17/19 11/18/19 11/17/19 Rx packet Alprazolam [Xanax] 0.25 - 0.5 mg PO TID PRN PRN 11/18/19 11/18/19 11/17/19 History Metoclopramide [Reglan] 10 mg PO Q6HR 11/18/19 11/18/19 11/17/19 History - History of Present Illness-ABD Nature of Presenting Problems: 74 YO F presents by EMS to ED with c/o weakness and abdominal pain. Pt has hx of zenker's diverticulum and currently has a PEG tube. She was seen here on last month, and discharged to a rehab facility. She states she stayed there for 21 days and was discharged home. She lives alone, but has a neighbor come to help her with medications and to check on her. She states she started feeling weak on today, so weak that she dropped her Jevity feeding solution that she was trying to give herself at 4pm today. She was only to give herself half of the solution. She denies fever. She is able to get around normally with her rollator. Abdominal Pain Onset Location: reports: generalized abdomen Pain Radiation: reports: other (complaints of weakness) Onset/Duration: reports: 24 hours ago Timing: reports: still present, constant Activities at Onset: reports: none Exposure to sick contacts?: No Review of Systems - Adult - REVIEW OF SYSTEMS - ADULT Constitutional: denies: chills, fever Eyes: reports: no symptoms reported Ears, Nose, Mouth & Throat: reports: no symptoms reported Cardiovascular: reports: no symptoms reported Respiratory: denies: shortness of breath, wheezing Gastrointestinal: reports: abdominal pain, constipation Genitourinary: reports: no symptoms reported Musculoskeletal: reports: no symptoms reported Integumentary: reports: no symptoms reported Neurological: reports: no symptoms reported Psychiatric: reports: no symptoms reported Endocrine: reports: no symptoms reported Past History - Adult - PAST MEDICAL HISTORY-ADULT Review of Records: reports: Old Records Reviewed, Social history reviewed & non- contributory. Major Childhood Illnesses: reports: denies history Cardiovascular: reports: HTN Respiratory: reports: denies history Gastrointestinal: reports: denies history Obstetrical/Gynecological: reports: denies history Genitourinary: reports: denies history Musculoskeletal: reports: denies history Neurological: reports: CVA, stroke deficits (slurred speech, trouble swallowing) Endocrine/Immune: reports: thyroid disorder Other Conditions: reports: denies history - PRIOR SURGERIES/PROCEDURES Surgical/Procedure History: reports: hysterectomy - IMMUNIZATION STATUS Childhood Immunizations: See Nurse Assessment Flu Vaccine: See Nurse Assessment - FAMILY HISTORY Family History: reviewed, not pertinent Physical Exam-General - PHYSICAL EXAM-ADULT Initial Vital Signs Reviewed: Yes - CONSTITUTIONAL General Appearance: alert, no apparent distress - EYES Eyes: PERRL/EOMI, pink conjunctivae - HEAD, EARS, NOSE, MOUTH & THROAT HENMT: normocephalic/atraumatic, moist mucous membranes - NECK Neck: supple - RESPIRATORY Respiratory: lungs clear, normal breath sounds, no pleuratic chest pain, no respiratory distress, no accessory muscle use - CARDIOVASCULAR Cardiovascular: regular rate, rhythm - GASTROINTESTINAL (ABDOMEN) Abdominal Exam: soft. negative: distended, guarding, rebound, tenderness - GENITOURINARY Rectal Exam: normal rectal tone, other (stool in the rectal vault) - MUSCULOSKELETAL Back Exam: no CVA tenderness Extremity: normal inspection, no pedal edema - SKIN Integumentary: normal color, normal turgor, warm/dry - NEUROLOGIC Neurologic: negative: facial droop, focal weakness - PSYCHIATRIC Psych/Mental Status: normal mood/affect, normal thought content, oriented x 3 Progress - PLAN OF CARE/RESULTS Progress/Plan/Lab Results: Vital Signs - 8 hr 11/18/ 17:28 Temperature 100.9 F H Pulse Rate 76 Respiratory Rate 16 Blood Pressure 141/65 O2 Sat by Pulse Oximetry 96 Orders Category Date Time Status Saline Loc NOW Care 11/18/19 17:57 Active CBC WITH ELECTRONIC DIFF [HEME] Stat Lab 11/18/19 17:57 Uncollected COMPREHENSIVE METABOLIC PANEL [CHEM] Stat Lab 11/18/19 17:57 Uncollected TSH Stat Lab 11/18/19 17:58 Uncollected EKG [EKG] Stat Ther 11/18/19 17:57 Ordered Result Diagrams: 12/02/19 15:10 12/01/19 05:03 - REASSESSMENT Reassessment #1 Time Reassessed: 01:39 Status: improving (disempacted pt of stool) - CT/MRI 1 CT Study: Abdomen, Pelvis Impression: See EMR Report (CT ABDOMEN/PELVIS W/O CONTRAST - 11/18/2019 INDICATION: abdominal pain, nausea, weakness COMPARISON: None FINDINGS: There are moderate infiltrates in the lung bases bilaterally concerning for pneumonia. Heart size is top normal. There is a G-tube in good position in the stomach. There are couple small dense gallstones in the gallbladder. No gallbladder distention or inflammation. No radiodense renal stones. No hydronephrosis or hydroureter. There is constipation with significant rectal stool impaction. There is a 6 cm rectal stool ball. No bowel obstruction. Normal appendix. Uterus is absent. Urinary bladder is normal. There are moderate degenerative changes of the spine. No acute or suspicious bony lesion. IMPRESSION: 1. Constipation with significant rectal stool impaction. 2. Scatt ered pneumonia in the lung bases. This exam was performed using automated exposure control, adjustment of mA or kV according to patient size, and/or use of iterative reconstruction technique Electronically signed by Chris Sweet 11/18/2019 7:39 PM) - CONSULTS/PCP/HOSPITALIST Notification #1 *Consult/PCP/Hospitalist*: Dr. Zarate Time Discussed: 01:38 Consult Disposition: Will see in ED, Admit Departure - Departure Date of Disposition Decision: 11/18/19 Time of Disposition Decision: 01:38 DIAGNOSIS: Constipation, Urinary tract infection, Fever, Pneumonia, Weakness Disposition: ADMITTED INPATIENT 09 Certified Medical Emergency: Emergent Condition: Stable - Critical Care Note This patient required my direct & personal management of CC.: No Attestation - Physician/ ESTUARDO Attestation Patient care was provided by Advanced Practice Provider:: No The physician spent face to face time with patient:: Yes Advanced Practice Provider documentation review:: Supervising physician onsite and consulted in the evaluation and care of this patient. The physician did have a face to face encounter with the patient.
[2019-11-18 18:28] LABS: BASO# 0.02 X1000 (0.0-0.2); BASO% 0.2 % (0.0-0.8); EOS# 0.03 X1000 (0.0-0.7); EOS% 0.3 % (0.0-10.0); HEMATOCRIT 37.1 % (37.0-47.0); HEMOGLOBIN 11.9 g/dL (12.0-16.0); LYMPH# 0.74 X1000 (1.2-3.4); LYMPH% 7.5 % (20.5-51.1); MCH 28.3 PG (27-31); MCHC 32.1 g/dL (33-37); MCV 88.1 FL (81-99); MONO% 9.2 % (1.7-9.3); MPV 10.9 FL (7.4-10.4); NEUT# 8.12 X1000 (1.4-6.5); NEUT% 82.8 % (42.2-75.2); PLT 197 X1000 (130-400); RBC 4.21 XMIL (4.2-5.4); RDW 14.9 % (11.5-14.5); WBC 9.81 X1000 (4.8-10.8)
[2019-11-18 19:04] LABS: AGAP 10; ALB/GLOB RATIO 1.2; ALBUMIN 3.7 g/dL (3.5-5.0); ALKALINE PHOSPHATASE 131 U/L (32-104); BUN 23 mg/dL (8-22); CALCIUM 9.4 mg/dL (8.8-10.2); CHLORIDE 90 mmol/L (98-107); COSMO 267; CREATININE 0.7 mg/dL (0.5-0.9); ESTIMATED GFR > 60; GLUCOSE 116 mg/dL (70-104); GOT 29 U/L (10-30); GPT 26 U/L (10-36); POTASSIUM 4.2 mmol/L (3.5-5.1); SODIUM 131 mmol/L (136-145); TCO2 31 mmol/L (25-35); TOTAL BILIRUBIN 0.33 mg/dL (0.20-1.00); TOTAL PROTEIN 6.8 g/dL (6.3-8.3)
[2019-11-18] MEDS ORDERED: NS 1,000 ML IV ONE (19:23)
--- NOTE | 2019-11-18 19:41 | Diag Imaging Result Doc PS360 ---
CT ABDOMEN/PELVIS W/O CONTRAST - 11/18/2019 INDICATION: abdominal pain, nausea, weakness COMPARISON: None FINDINGS: There are moderate infiltrates in the lung bases bilaterally concerning for pneumonia. Heart size is top normal. There is a G-tube in good position in the stomach. There are couple small dense gallstones in the gallbladder. No gallbladder distention or inflammation. No radiodense renal stones. No hydronephrosis or hydroureter. There is constipation with significant rectal stool impaction. There is a 6 cm rectal stool ball. No bowel obstruction. Normal appendix. Uterus is absent. Urinary bladder is normal. There are moderate degenerative changes of the spine. No acute or suspicious bony lesion. IMPRESSION: 1. Constipation with significant rectal stool impaction. 2. Scattered pneumonia in the lung bases. This exam was performed using automated exposure control, adjustment of mA or kV according to patient size, and/or use of iterative reconstruction technique Electronically signed by Chris Sweet 11/18/2019 7:39 PM
[2019-11-18] MEDS ORDERED: FLEET ENEMA PR ONE (20:16)
[2019-11-18] MEDS ORDERED: TYLENOL PO ONE (20:19)
--- NOTE | 2019-11-18 20:30 | EKG Report ---
Test Performed on : 11/18/2019 6:22:43 PM Test Reason : CP Blood Pressure : / mmHG Vent. Rate : 080 BPM Atrial Rate : 080 BPM P-R Int : 192 ms QRS Dur : 106 ms QT Int : 394 ms P-R-T Axes : 074 -60 055 degrees QTc Int : 454 ms Sinus rhythm. with marked sinus arrhythmia. Left anterior fascicular block Minimal voltage criteria for LVH, may be normal variant Abnormal ECG When compared with ECG of 02-OCT-2019 14:44, (Unconfirmed) No significant change was found Unconfirmed Result
[2019-11-18 21:42] LABS: URINE SOURCE CATH
[2019-11-18 21:44] LABS: BILIRUBIN URINE NEGATIVE (NEGATIVE); BLOOD URINE NEGATIVE (NEGATIVE); COLOR YELLOW; GLUCOSE URINE NEGATIVE (NEGATIVE); KETONE URINE NEGATIVE (NEGATIVE); LEUKOCYTES URINE LARGE (NEGATIVE); NITRITE URINE NEGATIVE (NEGATIVE); PROTEIN URINE NEGATIVE (NEGATIVE); SP GRAVITY URINE 1.006; TURBIDITY URINE HAZY (CLEAR); UROBILINOGEN URINE NORMAL (NORMAL)
[2019-11-18 21:46] LABS: UR EPITHELIAL CELLS <10 /HPF (<10); URINE BACTERIA NEGATIVE /HPF; URINE RBC <10 /HPF (<10); URINE WBC TNTC /HPF (<10)
[2019-11-18] MEDS ORDERED: BENADRYL LIQUID PEG ONE (22:00)
[2019-11-18] MEDS ORDERED: SEPTRA LIQUID PEG ONE (22:00)
[2019-11-18] MEDS ORDERED: CITRATE OF MAGNESIA PEG ONE (23:44)
[2019-11-19] MEDS ORDERED: MAXIPIME 2 GM/NS 2 GM/100 ML IVPB IV ONE (01:10)
[2019-11-19] MEDS ORDERED: MIRALAX PO PRN (01:28)
[2019-11-19] MEDS ORDERED: XANAX PO PRN (01:28)
[2019-11-19] MEDS ORDERED: TYLENOL PO PRN (01:28)
[2019-11-19] MEDS ORDERED: RESTASIS 0.05% OPH DROPS RIGHT EYE SCH (01:30)
[2019-11-19] MEDS ORDERED: REGLAN PO SCH (02:00)
[2019-11-19] MEDS ORDERED: VANCOMYCIN IV PER PHARMACY MISC SCH (03:48)
[2019-11-19] MEDS ORDERED: MUCINEX DM PO PRN (03:48)
[2019-11-19] MEDS ORDERED: BENADRYL LIQUID PEG PRN (04:25)
[2019-11-19] MEDS: NS 1,000 ML IV SCH ×2 (04:35→18:34)
[2019-11-19] MEDS: AZACTAM 1 GM in NS 50 ML IV SCH ×2 (04:35→11:48)
[2019-11-19] MEDS ORDERED: VANCOMYCIN 1,350 MG in NS 250 ML IV ONE (05:00)
--- NOTE | 2019-11-19 05:46 | HISTORY AND PHYSICAL ---
CHIEF COMPLAINT: Abdominal pain and weakness. HPI: This is an unfortunate 74-year-old female who comes into the emergency room related to abdominal pain and increased weakness. She has a history of Zenker diverticulum with surgical fixation and PEG tube placement. She was admitted last month for failure to thrive, decreased oral intake, and generalized weakness and was discharged from here to rehab. I believe that she stayed at rehab around 21 days and was recently discharged home. Since that time she has become more and more weak. She denies any fever or chills, nausea or vomiting or diarrhea. At any rate, her main complaint has been generalized weakness and abdominal pain. Her laboratory data was grossly normal. She went for a CT scan of her abdomen and pelvis, which showed infiltrates consistent with pneumonia in her lung bases, and then constipation with significant rectal stool impaction. She was disimpacted in the emergency room and given an enema. She will be admitted for treatment of pneumonia. PAST MEDICAL HISTORY: Hypertension, anxiety, history of stroke with slurred speech and trouble swallowing, hypothyroidism, esophageal dysmotility, Zenker diverticulum, adult failure to thrive. PREVIOUS SURGICAL HISTORY: PEG tube placement after Zenker diverticulum repair and hysterectomy. SOCIAL HISTORY: She is . Lives at home alone. No tobacco, alcohol or illicit drugs. FAMILY HISTORY: Positive for hypertension and coronary artery disease. ALLERGIES: ROCEPHIN CAUSING ANAPHYLAXIS, FISH PRODUCTS CAUSING ANAPHYLAXIS, LEVAQUIN CAUSING AN UNKNOWN REACTION, IODINE CAUSING ANAPHYLAXIS, PENICILLIN CAUSING NAUSEA AND VOMITING, AND SULFA ANTIBIOTICS CAUSING A RASH. REVIEW OF SYSTEMS: A 14-point review of systems is conducted with the patient. Pertinent positives listed above in the HPI. All other systems reviewed and found to be negative. PHYSICAL EXAMINATION: VITAL SIGNS: Temperature 98.4, pulse 103, respirations 20, blood pressure 144/61, oxygen saturation 97% on room air. GENERAL: A 74-year-old female lying in the ER stretcher. She is alert and oriented x3. She is in no acute distress. HEENT: Head is atraumatic, normocephalic. Pupils equal, round, reactive to light. Extraocular eye movements intact. Sclera anicteric. Conjunctiva pale. Oral mucosa is dry. NECK: Supple. No JVD. No thyromegaly. Trachea is midline. No cervical lymphadenopathy. CARDIAC: S1, S2 appreciated. No murmurs, gallops, rubs. LUNGS: Clear to auscultation bilaterally. Decreased in the bases. No rhonchi, wheezes, rales. Symmetrical rise and fall respiration. ABDOMEN: Soft, nondistended, diffusely tender. Bowel sounds present all 4 quadrants. Normoactive. No pulsatile masses or organomegaly. EXTREMITIES: No clubbing, cyanosis or edema. 2+ pedal pulses bilaterally. GENITOURINARY: No bladder distention. Patient voids, otherwise deferred. NEUROLOGICAL: Alert and oriented x3. Patient's speech is somewhat slurred but I noted that it has been slurred on previous examination. This is from previous stroke. No focal motor deficits, otherwise nonfocal examination. DIAGNOSTIC DATA: CT see HPI. LABORATORY DATA: WBC 9.81, hemoglobin 11.9, hematocrit 37.1, platelet count 197,000. Sodium 131, potassium 4.2, chloride 90, carbon dioxide 31, BUN 23, creatinine 0.7, glucose 116. Urine leukocyte esterase positive. Too numerous to count WBCs. ASSESSMENT AND PLAN: 1. Pneumonia. Will treat this as health-care acquired as she was just recently released from rehab. 2. Hypertension. 3. Generalized weakness. 4. Fluid volume depletion. 5. Abdominal pain with constipation. PLAN: Admit patient to PVC. She is tachycardic. Will place patient on telemetry. Check free T3 and T4. Continue her Synthroid. Continue antihypertensives and metoprolol. She was given a Fleet enema in the emergency room as well as mag citrate. Will continue her Miralax. Patient has multiple allergies to antibiotics. Will start her on Zithromax, vancomycin, and aztreonam IV. Will give Mucinex DM for congestion. Blood cultures and sputum cultures are pending. Consult physical therapy. Further recommendations per patient's clinical course. Dictated by CHIRAG Greer for Nicho Zarate MD cc: CHIRAG Greer MD Gregory S. Cheatham, MD Patient presenting with abdominal pain and weakness. Abd. CT positive for lung infiltrate as well as evidence of constipation. I agree with the assessment and plan of the CHIRAG. Dr. Zarate [id number]
[2019-11-19] MEDS: PRILOSEC PEG SCH (06:31)
[2019-11-19] MEDS ORDERED: PRILOSEC PO SCH (07:00)
[2019-11-19] MEDS ORDERED: SYNTHROID PO SCH (07:00)
[2019-11-19] MEDS ORDERED: SYNTHROID PEG SCH (07:00)
[2019-11-19 07:59] LABS: AGAP 13; BUN 15 mg/dL (8-22); CALCIUM 9.5 mg/dL (8.8-10.2); CHLORIDE 93 mmol/L (98-107); COSMO 260; CREATININE 0.6 mg/dL (0.5-0.9); ESTIMATED GFR > 60; GLUCOSE 107 mg/dL (70-104); POTASSIUM 3.4 mmol/L (3.5-5.1); SODIUM 129 mmol/L (136-145); TCO2 23 mmol/L (25-35)
[2019-11-19] MEDS ORDERED: CARAFATE PO SCH (09:00)
[2019-11-19] MEDS ORDERED: B12 PEG SCH (09:00)
[2019-11-19] MEDS ORDERED: IODIN PEG SCH (09:00)
[2019-11-19] MEDS ORDERED: [UNRECOGNIZED DRUG - OTHER] PO SCH (09:00)
[2019-11-19] MEDS ORDERED: MAG PO SCH (09:00)
[2019-11-19] MEDS ORDERED: MELATONIN PO SCH (09:00)
[2019-11-19] MEDS ORDERED: CELEXA PO SCH (09:00)
[2019-11-19] MEDS ORDERED: COZAAR PO SCH (09:00)
[2019-11-19] MEDS ORDERED: NORVASC PO SCH (09:00)
[2019-11-19] MEDS ORDERED: IODIN PO SCH (09:00)
[2019-11-19] MEDS ORDERED: ZINC PEG SCH (09:00)
[2019-11-19] MEDS ORDERED: MELATONIN PEG SCH (09:00)
[2019-11-19] MEDS ORDERED: ZOCOR PO SCH (09:00)
[2019-11-19] MEDS ORDERED: MAG PEG SCH (09:00)
[2019-11-19] MEDS ORDERED: ZINC PO SCH (09:00)
[2019-11-19] MEDS ORDERED: TOPROL XL PO SCH (09:00)
[2019-11-19] MEDS ORDERED: TAPAZOLE PO SCH (09:00)
[2019-11-19] MEDS ORDERED: [UNRECOGNIZED DRUG - OTHER] PEG SCH (09:00)
[2019-11-19] MEDS ORDERED: B12 PO SCH (09:00)
[2019-11-19] MEDS: ZITHROMAX 500 MG/NS 500 MG/250 ML IVPB IV SCH (10:08)
[2019-11-19] MEDS: ZOCOR PEG SCH ×2 (10:16→11:31)
[2019-11-19] MEDS: CENTRUM SILVER PO SCH ×2 (10:16→11:32)
[2019-11-19] MEDS: NORVASC PEG SCH ×2 (10:16→11:32)
[2019-11-19] MEDS: TAPAZOLE PEG SCH ×3 (10:16→21:26)
[2019-11-19] MEDS: COZAAR PEG SCH ×2 (10:16→11:33)
[2019-11-19] MEDS: CARAFATE PEG SCH ×3 (10:16→21:27)
[2019-11-19] MEDS: LOVENOX SUBQ SCH (10:17)
[2019-11-19] MEDS: REGLAN PEG SCH ×4 (10:19→21:27)
[2019-11-19] MEDS: ZOFRAN IV PRN ×2 (11:31→21:26)
[2019-11-19] MEDS: ROBITUSSIN PEG SCH ×3 (12:51→21:28)
--- NOTE | 2019-11-19 12:52 | PROGRESS NOTE ---
DATE: 11/19/2019 Brief Progress Note Patient admitted with likely pneumonia and generalized weakness. Labs also suggest likely UTI, although culture appears to be negative. The patient's abdominal pain is thought to be related to severe constipation, but if relief of constipation does not improve her symptoms, then bladder pathology could be considered given pyuria. Patient on bowel regimen for severe constipation. Will restart her home tube feeds. The patient's home medication list listed both methimazole and Synthroid. I questioned the patient about this, and she says she has been off the Synthroid, but is supposed to be on methimazole. Will change orders to reflect this. Continue antibiotics for possible pneumonia, and monitor. [facility]
[2019-11-19] MEDS: MELATONIN PEG SCH ×2 (14:00→21:27)
[2019-11-19] MEDS: TYLENOL PEG PRN (21:26)
[2019-11-19] MEDS: XANAX GT PRN (21:59)
[2019-11-20] MEDS: AZACTAM 1 GM in NS 50 ML IV SCH ×3 (00:15→16:45)
[2019-11-20] MEDS: ROBITUSSIN PEG SCH ×6 (00:16→20:52)
[2019-11-20] MEDS: REGLAN PEG SCH ×4 (06:54→20:53)
[2019-11-20] MEDS: NS 1,000 ML IV SCH ×2 (06:55→08:26)
[2019-11-20] MEDS: PRILOSEC PEG SCH (06:55)
[2019-11-20] MEDS: CARAFATE PEG SCH ×2 (08:21→20:54)
[2019-11-20] MEDS: TAPAZOLE PEG SCH ×2 (08:21→20:53)
[2019-11-20] MEDS: CENTRUM SILVER PO SCH (08:22)
[2019-11-20] MEDS: LOVENOX SUBQ SCH (08:22)
[2019-11-20] MEDS: ZOCOR PEG SCH (08:22)
[2019-11-20] MEDS: NORVASC PEG SCH (08:22)
[2019-11-20] MEDS: COZAAR PEG SCH (08:22)
[2019-11-20] MEDS: ZITHROMAX 500 MG/NS 500 MG/250 ML IVPB IV SCH (08:25)
[2019-11-20] MEDS: ZOFRAN IV PRN ×2 (09:41→20:52)
[2019-11-20] MEDS: XANAX GT PRN ×2 (14:57→22:28)
[2019-11-20 15:58] LABS: AGAP 11; BUN 10 mg/dL (8-22); CALCIUM 8.2 mg/dL (8.8-10.2); CHLORIDE 95 mmol/L (98-107); COSMO 265; CREATININE 0.4 mg/dL (0.5-0.9); ESTIMATED GFR > 60; GLUCOSE 162 mg/dL (70-104); POTASSIUM 3.4 mmol/L (3.5-5.1); SODIUM 131 mmol/L (136-145); TCO2 25 mmol/L (25-35)
--- NOTE | 2019-11-20 16:12 | PROGRESS NOTE ---
DATE: 11/20/2019 INTERVAL HISTORY: No acute events overnight. Ms. Miguel is feeling the same. She denies any chest pain or shortness of breath. She does have a cough because of inability to swallow her oral secretions. She denies any nausea or vomiting. She has been tolerating tube feeds well. She has had multiple bowel movements since yesterday. VITAL SIGNS: Temperature of 97.9 degrees, pulse 84, respiratory rate 22, blood pressure 136/50, saturating 99% on room air. PHYSICAL EXAMINATION: General: She does appear to have significant weight loss. She has exophthalmos. Oral cavity is moist. Lungs: Air entry bilaterally equal. No wheeze or rhonchi. Inspiratory crackles bilateral infrascapular region. Cardiovascular: S1, S2 normal. Regular. The patient has a systolic ejection murmur affecting right second intercostal space. Abdomen: Soft. There is a PEG tube in the upper abdomen. The site appears noninflamed without any pus or blood. Active bowel sounds. Extremities: She does not have any lower extremity edema. Neurologic: She is able to position herself in the bed without anyone's help. She is alert and oriented x3. She does have some dysphonia related to pool of secretions in her pharynx. LABS: No CBC or BMP today, which have been ordered. Her TSH was 0.01. MICROBIOLOGY: Urine culture is growing gram-positive cocci. Blood cultures are in the lab. IMAGING: No new imaging. ASSESSMENT AND PLAN: 1. Bilateral lower lobe pneumonia and acute cystitis leading to probably fever on presentation. On review of CT scan images, her pneumonia does not seem to be significant. However, she does have gram-positive cocci in the urine. I will continue intravenous vancomycin and intravenous aztreonam and follow up with final culture and sensitivity reports. Her pneumonia is likely aspirational considering her severe dysphagia. 2. Weakness, abdominal pain on presentation. The patient had failure to thrive for which she was admitted to [facility] between October 02 and October 17 and was discharged to rehab from where she went home. Her weakness is again related to failure to thrive and severe protein calorie malnutrition. I will continue her on tube feeds and dietitian has been consulted. Her electrolytes are deranged and I will follow up with sodium, potassium, and chloride level now. 3. Others. Continue methimazole for her history of thyrotoxicosis which was diagnosed 3 weeks ago as per the patient; metoclopramide, omeprazole, and sucralfate for history of gastroesophageal reflux disease and gastritis; simvastatin for history of hyperlipidemia; losartan, amlodipine for history of essential hypertension; multivitamin and minerals. 4. Disposition. I am going to monitor the patient inside the hospital. Her abdominal pain with constipation and fecal impaction seems to have resolved. I will keep her on bowel regimen. Plan of care discussed with the patient. Her questions have been satisfactorily answered. 5. In the past, the patient was diagnosed with Zenker's diverticulum and had failed surgery for which she required a PEG tube in 2019. I discussed with her about polypharmacy and decreasing the amount of nonessential medications after having a discussion with her regular physician. She understood it. cc: Steven Collins MD
[2019-11-20] MEDS ORDERED: VANCOMYCIN 1,100 MG in NS 250 ML IV SCH (17:00)
[2019-11-20] MEDS: MELATONIN PEG SCH (20:53)
[2019-11-20] MEDS: DULCOLAX PR SCH (20:54)
[2019-11-21] MEDS: AZACTAM 1 GM in NS 50 ML IV SCH ×3 (00:16→16:47)
[2019-11-21] MEDS: ROBITUSSIN PEG SCH ×3 (01:26→08:16)
[2019-11-21] MEDS: REGLAN PEG SCH ×5 (01:26→20:53)
[2019-11-21] MEDS: PRILOSEC PEG SCH (06:39)
[2019-11-21 07:59] LABS: AGAP 10; BUN 8 mg/dL (8-22); CALCIUM 8.7 mg/dL (8.8-10.2); CHLORIDE 99 mmol/L (98-107); COSMO 270; CREATININE 0.4 mg/dL (0.5-0.9); ESTIMATED GFR > 60; GLUCOSE 97 mg/dL (70-104); MAGNESIUM 1.6 mg/dL (1.5-2.7); PHOSPHORUS 2.1 mg/dL (2.7-4.5); POTASSIUM 3.7 mmol/L (3.5-5.1); SODIUM 136 mmol/L (136-145); TCO2 27 mmol/L (25-35)
[2019-11-21] MEDS: ZITHROMAX 500 MG/NS 500 MG/250 ML IVPB IV SCH (08:16)
[2019-11-21] MEDS: ZOCOR PEG SCH (08:16)
[2019-11-21] MEDS: TAPAZOLE PEG SCH ×2 (08:16→20:54)
[2019-11-21] MEDS: COZAAR PEG SCH (08:16)
[2019-11-21] MEDS: NORVASC PEG SCH (08:16)
[2019-11-21] MEDS: CENTRUM SILVER PO SCH (08:16)
[2019-11-21] MEDS: LOVENOX SUBQ SCH (08:16)
[2019-11-21] MEDS: CARAFATE PEG SCH ×2 (08:16→20:54)
[2019-11-21] MEDS: DULCOLAX PR SCH ×2 (08:17→20:53)
[2019-11-21] MEDS: ZOFRAN IV PRN ×2 (08:30→17:14)
[2019-11-21] MEDS: XANAX GT PRN ×2 (12:36→20:54)
--- NOTE | 2019-11-21 16:19 | PROGRESS NOTE ---
DATE: 11/21/2019 SUBJECTIVE: The patient reports feeling basically the same. Denies any chest pain. No shortness of breath. She continues to have cough because of the inability to swallow her own secretions. No other complaints at this time. OBJECTIVE: Vital Signs: Temperature 98.5 degrees, heart rate 85, respiratory rate 18, blood pressure 156/54, and O2 saturation 98% on room air. General: On examination this is a chronically ill-appearing 74-year-old female lying in bed, in no acute distress. Looking malnourished. HEENT: Mucous membranes moist. Cardiovascular: S1 and S2 heard. The patient has a systolic ejection murmur in the mitral area. No gallops or rubs. Respiratory: Clear bilaterally to auscultation. No work of breathing or using accessory muscles. Abdomen: Soft. Nontender to palpation. PEG tube in place in the upper abdomen. No erythema around it. Bowel sounds present. No organomegaly. Extremities: No clubbing, cyanosis, or edema. Peripheral pulses present in both legs. Neurological: Patient is awake and oriented x3. Moves 4 extremities. LABORATORY DATA: No CBC from today, but BMP reveals normal creatinine with phosphorus 2.1, magnesium 1.6. ASSESSMENT AND PLAN: 1. Bilateral lower lobe pneumonia secondary to aspiration and acute cystitis. We will continue with vancomycin and aztreonam. The urine culture reveals Enterococcus pansensitive, but while she is in the hospital we will continue with the same management. 2. General weakness. The patient has had failure to thrive, and she has been admitted at the end of September to a rehab facility and then she went home. Patient lives alone. This weakness is related to fail to thrive. I think at this point, patient needs to go to rehab facility. Patient agreed with the plan, so at this point we will continue to monitor this patient closely. 3. History of thyrotoxicosis. We will continue with methimazole. 4. Gastroesophageal reflux disease. We will continue with omeprazole. 5. Hypertension. Blood pressure is under control. We will continue with losartan and amlodipine. 6. Disposition. At this point, the patient is profoundly weak and lives alone, so at this point we are going to consult social work lecturer for rehab placement. cc: Josue Alonzo MD
[2019-11-21] MEDS: MELATONIN PEG SCH (20:53)
[2019-11-21] MEDS: RESTASIS 0.05% OPH DROPS BOTH EYES SCH (20:53)
[2019-11-22] MEDS: AZACTAM 1 GM in NS 50 ML IV SCH ×4 (00:01→23:09)
[2019-11-22] MEDS: REGLAN PEG SCH ×4 (01:31→20:32)
[2019-11-22] MEDS: PRILOSEC PEG SCH (06:48)
[2019-11-22 08:26] LABS: MAGNESIUM 1.5 mg/dL (1.5-2.7); PHOSPHORUS 1.8 mg/dL (2.7-4.5)
[2019-11-22] MEDS ORDERED: SODIUM PHOSPHATE 35 MMOL in NS 250 ML IV ONE (08:32)
[2019-11-22] MEDS: COZAAR PEG SCH (08:39)
[2019-11-22] MEDS: ZOFRAN IV PRN ×2 (08:39→20:53)
[2019-11-22] MEDS: ZOCOR PEG SCH (08:39)
[2019-11-22] MEDS: CARAFATE PEG SCH ×2 (08:39→20:32)
[2019-11-22] MEDS: NORVASC PEG SCH (08:39)
[2019-11-22] MEDS: CENTRUM SILVER PO SCH (08:39)
[2019-11-22] MEDS: RESTASIS 0.05% OPH DROPS BOTH EYES SCH ×2 (08:40→20:31)
[2019-11-22] MEDS: ZITHROMAX 500 MG/NS 500 MG/250 ML IVPB IV SCH (08:40)
[2019-11-22] MEDS: TAPAZOLE PEG SCH ×2 (08:40→20:32)
[2019-11-22] MEDS: LOVENOX SUBQ SCH (08:40)
[2019-11-22] MEDS: DULCOLAX PR SCH ×2 (08:40→23:13)
[2019-11-22 08:55] LABS: AGAP 9; ALB/GLOB RATIO 1.4; ALKALINE PHOSPHATASE 104 U/L (32-104); BUN 10 mg/dL (8-22); CALCIUM 8.3 mg/dL (8.8-10.2); CHLORIDE 96 mmol/L (98-107); COSMO 268; CREATININE 0.3 mg/dL (0.5-0.9); ESTIMATED GFR > 60; GLUCOSE 110 mg/dL (70-104); GOT 27 U/L (10-30); GPT 22 U/L (10-36); POTASSIUM 3.7 mmol/L (3.5-5.1); SODIUM 134 mmol/L (136-145); TCO2 29 mmol/L (25-35); TOTAL BILIRUBIN 0.15 mg/dL (0.20-1.00); TOTAL PROTEIN 5.1 g/dL (6.3-8.3)
[2019-11-22] MEDS: VANCOMYCIN 1,250 MG in NS 250 ML IV SCH (10:28)
[2019-11-22] MEDS: NEUTRA-PHOS GT SCH ×2 (10:31→18:16)
--- NOTE | 2019-11-22 12:20 | PROGRESS NOTE ---
DATE: 11/22/2019 SUBJECTIVE: Patient reports feeling fine. Still having some cough because of her inability to swallow her own secretions. No other complaints at this time. OBJECTIVE: Vital Signs: Temperature 97.6 degrees, heart rate 74, respiratory rate 14, blood pressure 142/50, O2 saturation 96% on room air. General: This is a chronically ill-appearing, 74-year-old female, lying in bed, in no acute distress. Cardiovascular: S1, S2 heard. The patient has a systolic ejection murmur in the mitral area, but no gallops or rubs noted. Respiratory: Clear bilaterally to auscultation. No work of breathing or using accessory muscles. Abdomen: Soft, nontender to palpation. PEG tube in place in the upper abdomen. No erythema around it. Bowel sounds present. No organomegaly. Extremities: No clubbing, cyanosis, or edema. Peripheral pulses present in both legs. Neurological: Patient is alert, awake, oriented x3. Moves 4 extremities. LABORATORY DATA: Reviewed. ASSESSMENT AND PLAN: 1. Bilateral lower lobe pneumonia secondary to aspiration and acute cystitis. We will continue with vancomycin and aztreonam. Urine culture showed enterococcus, pansensitive. We will continue with the same management. 2. Hypophosphatemia. We will replenish phosphorus today, it is 2.1 today. 3. General weakness. Patient has failure to thrive and is feeling very weak and the patient lives alone, so at this point, Physical Therapy working with this patient. We are looking for a rehab bed for her. 4. History of thyrotoxicosis. We will continue with methimazole. 5. Gastroesophageal reflux disease. We will continue with omeprazole. 6. Hypertension. Blood pressure is under control. We will continue with amlodipine and losartan. 7. Disposition. At this point, we are trying to send this patient to rehab facility. cc: MD SCOTT Foy
[2019-11-22] MEDS: XANAX GT PRN ×2 (13:27→20:44)
[2019-11-22] MEDS: MELATONIN PEG SCH (20:32)
[2019-11-23] MEDS: NEUTRA-PHOS GT SCH ×3 (00:45→18:15)
[2019-11-23] MEDS: REGLAN PEG SCH ×4 (02:24→20:48)
[2019-11-23] MEDS: TYLENOL PEG PRN (03:48)
[2019-11-23] MEDS: PRILOSEC PEG SCH (06:25)
[2019-11-23] MEDS: AZACTAM 1 GM in NS 50 ML IV SCH ×2 (08:24→18:15)
[2019-11-23] MEDS: ZOFRAN IV PRN ×2 (08:24→20:49)
[2019-11-23] MEDS: CARAFATE PEG SCH ×2 (08:24→20:48)
[2019-11-23] MEDS: ZOCOR PEG SCH (08:24)
[2019-11-23] MEDS: ZITHROMAX 500 MG/NS 500 MG/250 ML IVPB IV SCH (08:24)
[2019-11-23] MEDS: VANCOMYCIN 1,250 MG in NS 250 ML IV SCH (08:24)
[2019-11-23] MEDS: TAPAZOLE PEG SCH ×2 (08:24→20:48)
[2019-11-23] MEDS: CENTRUM SILVER PO SCH (08:25)
[2019-11-23] MEDS: NORVASC PEG SCH (08:25)
[2019-11-23] MEDS: COZAAR PEG SCH (08:25)
[2019-11-23] MEDS: DULCOLAX PR SCH ×2 (08:26→20:46)
[2019-11-23] MEDS: RESTASIS 0.05% OPH DROPS BOTH EYES SCH ×2 (08:26→20:47)
[2019-11-23] MEDS: LOVENOX SUBQ SCH (08:26)
[2019-11-23] MEDS: MIRALAX PEG PRN (08:29)
[2019-11-23 09:49] LABS: AGAP 9; ALB/GLOB RATIO 0.9; ALBUMIN 2.9 g/dL (3.5-5.0); ALKALINE PHOSPHATASE 109 U/L (32-104); BUN 11 mg/dL (8-22); CALCIUM 8.9 mg/dL (8.8-10.2); CHLORIDE 94 mmol/L (98-107); COSMO 269; CREATININE 0.4 mg/dL (0.5-0.9); ESTIMATED GFR > 60; GLUCOSE 124 mg/dL (70-104); GOT 43 U/L (10-30); GPT 37 U/L (10-36); MAGNESIUM 1.6 mg/dL (1.5-2.7); POTASSIUM 4.2 mmol/L (3.5-5.1); SODIUM 134 mmol/L (136-145); TCO2 31 mmol/L (25-35); TOTAL BILIRUBIN 0.19 mg/dL (0.20-1.00)
[2019-11-23] MEDS: XANAX GT PRN ×2 (13:51→20:48)
--- NOTE | 2019-11-23 15:58 | PROGRESS NOTE ---
DATE: 11/23/2019 SUBJECTIVE: Patient reports feeling fine. Still reporting some cough, but getting better. No other complaints at this time. OBJECTIVE: Vital Signs: Temperature 98.4 degrees, heart rate 71 respiratory rate 18, blood pressure 112/95, O2 saturation 98% on room air. General Examination: This is a 74-year-old female lying in bed, in no acute distress. Cardiovascular: S1 and S2 heard. No murmurs, gallops, or rubs. Regular rate and rhythm. The patient has a systolic ejection murmur in the mitral area. Respiratory: Clear bilaterally to auscultation. No work of breathing or using accessory muscles. Abdomen: Soft, nontender to palpation. PEG tube in place in the upper abdomen but no erythema around it. Bowel sounds present. No organomegaly. Extremities: No clubbing, cyanosis, or edema. Peripheral pulses present in both legs. Neurological: Patient is alert, awake, oriented x3. Moves four extremities. LABORATORY DATA: Reviewed. ASSESSMENT AND PLAN: 1. Bilateral lower lobe pneumonia secondary to aspiration and acute cystitis. Will continue with vancomycin and aztreonam. Urine culture showed Enterococcus pansensitive, but at this point we will continue with the same management. 2. Hypophosphatemia, resolved. 3. General weakness. The patient has failure to thrive. The patient feeling very weak. So at this point, the patient had decided to go to rehab facility. At the moment Physical Therapy is working with this patient. We will continue with the same management. 4. History of thyrotoxicosis. We will continue with methimazole. 5. Gastroesophageal reflux disease. We will continue with omeprazole. 6. Hypertension. Blood pressure is under control. We will continue with amlodipine and losartan. 7. Disposition. At this time, patient awaiting a rehab bed. cc: Josue Alonzo MD
[2019-11-23] MEDS: MELATONIN PEG SCH (20:48)
[2019-11-24] MEDS: AZACTAM 1 GM in NS 50 ML IV SCH ×3 (00:19→19:01)
[2019-11-24] MEDS: NEUTRA-PHOS GT SCH ×3 (00:25→19:02)
[2019-11-24] MEDS: REGLAN PEG SCH ×4 (02:01→21:26)
[2019-11-24] MEDS: PRILOSEC PEG SCH (06:09)
[2019-11-24] MEDS: COZAAR PEG SCH (08:13)
[2019-11-24] MEDS: CENTRUM SILVER PO SCH (08:13)
[2019-11-24] MEDS: DULCOLAX PR SCH ×2 (08:13→21:10)
[2019-11-24] MEDS: TAPAZOLE PEG SCH ×2 (08:14→21:26)
[2019-11-24] MEDS: NORVASC PEG SCH (08:14)
[2019-11-24] MEDS: ZITHROMAX 500 MG/NS 500 MG/250 ML IVPB IV SCH (08:14)
[2019-11-24] MEDS: ZOCOR PEG SCH (08:14)
[2019-11-24] MEDS: CARAFATE PEG SCH ×2 (08:14→21:26)
[2019-11-24] MEDS: RESTASIS 0.05% OPH DROPS BOTH EYES SCH (08:15)
[2019-11-24] MEDS: LOVENOX SUBQ SCH (08:15)
[2019-11-24] MEDS: ZOFRAN IV PRN ×2 (08:40→19:49)
[2019-11-24] MEDS: VANCOMYCIN 1,250 MG in NS 250 ML IV SCH (10:20)
[2019-11-24] MEDS: MIRALAX PEG PRN (10:20)
--- NOTE | 2019-11-24 12:57 | PROGRESS NOTE ---
DATE: 11/24/2019 SUBJECTIVE: Patient reports feeling fine. No complaints at this time. Still complaining of some cough but basically unchanged for last few days. OBJECTIVE: Vital Signs: Temperature 98.3 degrees, heart rate 81, respiratory rate 20, blood pressure 142/52, O2 saturation 99% on room air. General: This is a chronically ill-appearing, 74- year-old female lying in bed, in no acute distress. Cardiovascular: S1, S2 heard. No murmurs, gallops, or rubs. Regular rate and rhythm. Respiratory: Clear bilaterally to auscultation. No work of breathing or using accessory muscles. Abdomen: Soft, nontender to palpation. PEG tube in place in the upper abdomen but no erythema around it. Bowel sounds present. No organomegaly. Extremities: No clubbing, cyanosis, or edema. Peripheral pulses present in both legs. Neurological: Patient is alert, awake, oriented. Moves 4 extremities. LABORATORY DATA: Reviewed. ASSESSMENT AND PLAN: 1. Bilateral lower lobe pneumonia secondary to aspiration and acute cystitis. We will continue with vancomycin and aztreonam. 2. Hypophosphatemia resolved. 3. General weakness. The patient has failed to thrive. She is very weak. Actually, we are awaiting for a rehab bed. The patient has a sister who lives in [place] so she has requested to go around that area. cargo station worker has been notified. We will see when we have a bed for her. 4. History of thyrotoxicosis. We will continue with methimazole. 5. Gastroesophageal reflux disease. We will continue with omeprazole. 6. Hypertension. Blood pressure is under control. We will continue with losartan and amlodipine. 7. Disposition. At this point, the patient is awaiting a rehab bed. cc: Josue Alonzo MD
[2019-11-24] MEDS: XANAX GT PRN ×2 (13:49→23:48)
[2019-11-24] MEDS: MELATONIN PEG SCH (21:26)
[2019-11-25] MEDS: RESTASIS 0.05% OPH DROPS BOTH EYES SCH ×3 (00:19→20:36)
[2019-11-25] MEDS: REGLAN PEG SCH ×4 (01:14→20:36)
[2019-11-25] MEDS: NEUTRA-PHOS GT SCH (01:14)
[2019-11-25] MEDS: AZACTAM 1 GM in NS 50 ML IV SCH ×4 (01:14→23:32)
[2019-11-25] MEDS: PRILOSEC PEG SCH (06:44)
[2019-11-25 08:02] LABS: AGAP 10; ALB/GLOB RATIO 1.3; ALBUMIN 3.4 g/dL (3.5-5.0); ALKALINE PHOSPHATASE 119 U/L (32-104); BUN 12 mg/dL (8-22); CHLORIDE 93 mmol/L (98-107); COSMO 264; CREATININE 0.4 mg/dL (0.5-0.9); ESTIMATED GFR > 60; GLUCOSE 90 mg/dL (70-104); GOT 61 U/L (10-30); GPT 52 U/L (10-36); POTASSIUM 4.1 mmol/L (3.5-5.1); SODIUM 132 mmol/L (136-145); TCO2 29 mmol/L (25-35); TOTAL BILIRUBIN 0.22 mg/dL (0.20-1.00)
[2019-11-25 08:03] LABS: MAGNESIUM 1.8 mg/dL (1.5-2.7); PHOSPHORUS 3.5 mg/dL (2.7-4.5)
[2019-11-25] MEDS: LOVENOX SUBQ SCH (08:33)
[2019-11-25] MEDS: COZAAR PEG SCH (08:33)
[2019-11-25] MEDS: ZOCOR PEG SCH (08:34)
[2019-11-25] MEDS: TAPAZOLE PEG SCH ×2 (08:34→20:36)
[2019-11-25] MEDS: CENTRUM SILVER PO SCH (08:34)
[2019-11-25] MEDS: NORVASC PEG SCH (08:34)
[2019-11-25] MEDS: CARAFATE PEG SCH ×2 (08:35→20:36)
[2019-11-25] MEDS: DULCOLAX PR SCH ×2 (08:37→20:52)
[2019-11-25] MEDS: ZITHROMAX 500 MG/NS 500 MG/250 ML IVPB IV SCH (09:26)
[2019-11-25 10:25] LABS: BASO# 0.04 X1000 (0.0-0.2); BASO% 0.8 % (0.0-0.8); EOS% 6.3 % (0.0-10.0); HEMATOCRIT 35.6 % (37.0-47.0); HEMOGLOBIN 11.2 g/dL (12.0-16.0); LYMPH# 1.46 X1000 (1.2-3.4); LYMPH% 30.6 % (20.5-51.1); MCH 28.4 PG (27-31); MCHC 31.5 g/dL (33-37); MCV 90.4 FL (81-99); MONO# 0.57 X1000 (0.11-0.59); MONO% 11.9 % (1.7-9.3); MPV 10.8 FL (7.4-10.4); NEUT% 50.4 % (42.2-75.2); PLT 199 X1000 (130-400); RBC 3.94 XMIL (4.2-5.4); RDW 14.6 % (11.5-14.5); WBC 4.77 X1000 (4.8-10.8)
--- NOTE | 2019-11-25 11:43 | PROGRESS NOTE ---
DATE: 11/25/2019 SUBJECTIVE: Patient reports feeling fine. No new complaints at this time. Mild cough is still present. OBJECTIVE: Vital Signs: Temperature 98.3 degrees, heart rate 77, respiratory rate 16, blood pressure 151/52, and O2 saturation 99% on room air. General: On examination, this is a chronically ill-appearing 74-year-old female lying in bed in no acute distress. Cardiovascular: S1 and S2 heard. No murmurs, gallops, or rubs. Regular rate and rhythm. Respiratory: Clear bilaterally to auscultation. No work of breathing or using accessory muscles. Abdomen: Soft, nontender to palpation. PEG tube in place in the upper abdomen, but no erythema around it. Bowel sounds present. No organomegaly. Extremities: No clubbing, cyanosis, or edema. Peripheral pulses present in both legs. Neurological: Patient is alert and oriented x3. Moves 4 extremities. LABORATORY DATA: Reviewed. ASSESSMENT AND PLAN: 1. Bilateral lower lobe pneumonia secondary to aspiration and acute cystitis. We will continue with vancomycin, on aztreonam, currently today is day number 6 for vancomycin and aztreonam as well. At this point, we will continue current management. 2. General weakness. Patient has failure to thrive. We are waiting for rehab bed. Actually, we are looking for facilities near [place] where her sister leaves. 3. History of thyrotoxicosis. We will continue with methimazole. 4. Gastroesophageal reflux disease. We will continue with omeprazole. 5. Hypertension. Continue with losartan and amlodipine. 6. Disposition. Awaiting rehab bed. cc: Josue Alonzo MD
[2019-11-25] MEDS: VANCOMYCIN 1,250 MG in NS 250 ML IV SCH (14:00)
[2019-11-25] MEDS: XANAX GT PRN ×2 (14:31→20:39)
--- NOTE | 2019-11-25 14:45 | Diag Imaging Result Doc PS360 ---
EXAM: CHEST-PORTABLE 11/25/2019 HISTORY: Rehab placement TECHNIQUE: AP upright portable at 1439 COMMENT: There is atelectasis versus pneumonia in the retrocardiac portion of left lower lobe which was not present on 10/15/2019. IMPRESSION: Left lower lobe atelectasis. Electronically signed by Ryan Barnett 11/25/2019 2:43 PM
[2019-11-25] MEDS: ZOFRAN IV PRN (18:11)
[2019-11-25] MEDS: MELATONIN PEG SCH (20:36)
[2019-11-26] MEDS: REGLAN PEG SCH ×4 (01:30→21:18)
[2019-11-26] MEDS: PRILOSEC PEG SCH (06:12)
[2019-11-26 07:19] LABS: BASO# 0.03 X1000 (0.0-0.2); BASO% 0.6 % (0.0-0.8); EOS# 0.27 X1000 (0.0-0.7); EOS% 5.4 % (0.0-10.0); HEMATOCRIT 36.3 % (37.0-47.0); HEMOGLOBIN 11.5 g/dL (12.0-16.0); LYMPH# 1.47 X1000 (1.2-3.4); LYMPH% 29.4 % (20.5-51.1); MCH 28.3 PG (27-31); MCHC 31.7 g/dL (33-37); MCV 89.2 FL (81-99); MONO# 0.57 X1000 (0.11-0.59); MONO% 11.4 % (1.7-9.3); MPV 9.9 FL (7.4-10.4); NEUT# 2.66 X1000 (1.4-6.5); NEUT% 53.2 % (42.2-75.2); PLT 218 X1000 (130-400); RBC 4.07 XMIL (4.2-5.4); RDW 14.3 % (11.5-14.5)
[2019-11-26 07:36] LABS: AGAP 10; ALBUMIN 3.4 g/dL (3.5-5.0); BUN 13 mg/dL (8-22); CALCIUM 9.5 mg/dL (8.8-10.2); CHLORIDE 93 mmol/L (98-107); COSMO 266; CREATININE 0.4 mg/dL (0.5-0.9); ESTIMATED GFR > 60; GLUCOSE 94 mg/dL (70-104); MAGNESIUM 1.7 mg/dL (1.5-2.7); POTASSIUM 4.2 mmol/L (3.5-5.1); SODIUM 133 mmol/L (136-145); TCO2 30 mmol/L (25-35)
[2019-11-26] MEDS: AZACTAM 1 GM in NS 50 ML IV SCH ×2 (08:22→16:35)
[2019-11-26] MEDS: DULCOLAX PR SCH ×2 (08:22→23:07)
[2019-11-26] MEDS: ZOCOR PEG SCH (08:28)
[2019-11-26] MEDS: NORVASC PEG SCH (08:28)
[2019-11-26] MEDS: TAPAZOLE PEG SCH ×2 (08:28→21:18)
[2019-11-26] MEDS: CENTRUM SILVER PO SCH (08:28)
[2019-11-26] MEDS: LOVENOX SUBQ SCH (08:28)
[2019-11-26] MEDS: CARAFATE PEG SCH ×2 (08:28→21:18)
[2019-11-26] MEDS: COZAAR PEG SCH (08:28)
[2019-11-26] MEDS: RESTASIS 0.05% OPH DROPS BOTH EYES SCH ×2 (08:29→21:18)
[2019-11-26] MEDS: VANCOMYCIN 1,250 MG in NS 250 ML IV SCH (09:07)
[2019-11-26] MEDS: XANAX GT PRN (12:15)
[2019-11-26] MEDS: ZOFRAN IV PRN ×2 (12:16→21:19)
--- NOTE | 2019-11-26 13:33 | PROGRESS NOTE ---
DATE: 11/26/2019 SUBJECTIVE: The patient reports feeling fine. No acute issues noted as per nursing staff overnight. OBJECTIVE: Vital Signs: Temperature 98.5 degrees, heart rate 73, respiratory rate 20, blood pressure 135/51, O2 saturation 99% on room air. General: This is a chronically ill-appearing, 74- year-old, female, lying in bed in no acute distress. Cardiovascular: S1, S2 heard. No murmurs, gallops, or rubs. Regular rate and rhythm. Respiratory: Clear bilaterally to auscultation. No work of breathing or using accessory muscles. Abdomen: Soft, nontender to palpation. PEG tube in place. No signs of erythema. Neurological: The patient is alert, awake. Moves all 4 extremities. LABORATORY DATA: Reviewed. ASSESSMENT AND PLAN: 1. Bilateral lower pneumonia secondary to aspiration and acute cystitis. Will continue with vancomycin and aztreonam. Today is day #7 for both medications. Will continue with the same management. 2. General weakness. The patient has failure to thrive, and we are basically waiting for a rehab bed. 3. History of thyrotoxicosis. Will continue with methimazole. 4. Gastroesophageal reflux disease. Will continue with omeprazole. 5. Hypertension. Blood pressure is under control. Will continue with losartan and amlodipine. 6. Disposition. Awaiting rehab bed. cc: Josue Alonzo MD
[2019-11-26] MEDS: MELATONIN PEG SCH (21:18)
[2019-11-27] MEDS: AZACTAM 1 GM in NS 50 ML IV SCH ×3 (01:12→16:44)
[2019-11-27] MEDS: VANCOMYCIN 1,250 MG in NS 250 ML IV SCH ×2 (03:00→22:04)
[2019-11-27] MEDS: REGLAN PEG SCH ×4 (05:28→22:05)
[2019-11-27 07:59] LABS: BASO# 0.03 X1000 (0.0-0.2); BASO% 0.6 % (0.0-0.8); EOS# 0.31 X1000 (0.0-0.7); EOS% 6.5 % (0.0-10.0); HEMATOCRIT 35.6 % (37.0-47.0); HEMOGLOBIN 11.2 g/dL (12.0-16.0); LYMPH# 1.48 X1000 (1.2-3.4); LYMPH% 31.1 % (20.5-51.1); MCH 28.1 PG (27-31); MCHC 31.5 g/dL (33-37); MCV 89.4 FL (81-99); MONO# 0.51 X1000 (0.11-0.59); MONO% 10.7 % (1.7-9.3); MPV 10.3 FL (7.4-10.4); NEUT# 2.43 X1000 (1.4-6.5); NEUT% 51.1 % (42.2-75.2); PLT 237 X1000 (130-400); RBC 3.98 XMIL (4.2-5.4); RDW 14.5 % (11.5-14.5); WBC 4.76 X1000 (4.8-10.8)
[2019-11-27 08:11] LABS: AGAP 10; ALBUMIN 3.4 g/dL (3.5-5.0); BUN 15 mg/dL (8-22); CALCIUM 9.7 mg/dL (8.8-10.2); CHLORIDE 94 mmol/L (98-107); COSMO 267; CREATININE 0.4 mg/dL (0.5-0.9); ESTIMATED GFR > 60; GLUCOSE 95 mg/dL (70-104); MAGNESIUM 1.8 mg/dL (1.5-2.7); PHOSPHORUS 3.2 mg/dL (2.7-4.5); POTASSIUM 4.4 mmol/L (3.5-5.1); SODIUM 133 mmol/L (136-145); TCO2 29 mmol/L (25-35)
[2019-11-27] MEDS: PRILOSEC PEG SCH (08:15)
[2019-11-27] MEDS: RESTASIS 0.05% OPH DROPS BOTH EYES SCH ×2 (08:15→22:05)
[2019-11-27] MEDS: ZOCOR PEG SCH (08:15)
[2019-11-27] MEDS: CARAFATE PEG SCH ×2 (08:15→22:05)
[2019-11-27] MEDS: LOVENOX SUBQ SCH (08:15)
[2019-11-27] MEDS: COZAAR PEG SCH (08:15)
[2019-11-27] MEDS: CENTRUM SILVER PO SCH (08:15)
[2019-11-27] MEDS: TAPAZOLE PEG SCH ×2 (08:16→22:05)
[2019-11-27] MEDS: DULCOLAX PR SCH (08:16)
[2019-11-27] MEDS: NORVASC PEG SCH (08:16)
[2019-11-27] MEDS: ZOFRAN IV PRN ×2 (08:49→22:06)
--- NOTE | 2019-11-27 13:09 | PROGRESS NOTE ---
DATE: 11/27/2019 SUBJECTIVE: The patient reports feeling okay. No acute issues noted. OBJECTIVE: Vital Signs: Temperature 98.4 degrees, heart rate 75, respiratory rate 18, blood pressure 128/53, O2 saturation 100% on room air. General: This is a chronically ill-appearing, 74-year-old, female, lying in bed in no acute distress. Cardiovascular: S1, S2 heard. No murmurs, gallops, or rubs. Regular rate and rhythm. Respiratory: Clear bilaterally to auscultation. No work of breathing or using accessory muscles. Abdomen: Soft. PEG tube in place. No signs of erythema around it. Neurological: The patient is awake. Moves all 4 extremities. LABORATORY DATA: Reviewed. ASSESSMENT AND PLAN: 1. Bilateral lower lobe pneumonia secondary to aspiration and acute cystitis. Will continue with vancomycin and aztreonam, day #8 for the above medication. Will continue to complete 10 days of antibiotics. 2. General weakness. The patient has failure to thrive. Basically continuing with percutaneous endoscopic gastrostomy tube feedings and waiting for rehab bed. 3. History of thyrotoxicosis. Will continue with methimazole. 4. Gastroesophageal reflux disease. Will continue with omeprazole. 5. Hypertension. Blood pressure is under control. Will continue with losartan and amlodipine. 6. Disposition. Awaiting rehab bed. cc: Josue Alonzo MD
[2019-11-27] MEDS: XANAX GT PRN ×2 (13:25→22:04)
[2019-11-27] MEDS: MELATONIN PEG SCH (22:05)
[2019-11-27] MEDS: TYLENOL PEG PRN (22:05)
[2019-11-28] MEDS: AZACTAM 1 GM in NS 50 ML IV SCH ×3 (00:33→16:20)
[2019-11-28] MEDS: DULCOLAX PR SCH ×3 (00:33→20:29)
[2019-11-28] MEDS: REGLAN PEG SCH ×4 (03:33→20:29)
[2019-11-28] MEDS: PRILOSEC PEG SCH (06:25)
[2019-11-28 07:23] LABS: BASO# 0.04 X1000 (0.0-0.2); BASO% 0.8 % (0.0-0.8); EOS# 0.31 X1000 (0.0-0.7); EOS% 6.6 % (0.0-10.0); HEMATOCRIT 34.7 % (37.0-47.0); HEMOGLOBIN 10.9 g/dL (12.0-16.0); LYMPH# 1.68 X1000 (1.2-3.4); LYMPH% 35.7 % (20.5-51.1); MCH 28.5 PG (27-31); MCHC 31.4 g/dL (33-37); MCV 90.6 FL (81-99); MONO# 0.58 X1000 (0.11-0.59); MONO% 12.3 % (1.7-9.3); MPV 9.8 FL (7.4-10.4); NEUT% 44.6 % (42.2-75.2); PLT 231 X1000 (130-400); RBC 3.83 XMIL (4.2-5.4); RDW 14.7 % (11.5-14.5); WBC 4.71 X1000 (4.8-10.8)
[2019-11-28 07:39] LABS: AGAP 7; ALBUMIN 3.2 g/dL (3.5-5.0); BUN 18 mg/dL (8-22); CALCIUM 9.3 mg/dL (8.8-10.2); CHLORIDE 94 mmol/L (98-107); COSMO 266; CREATININE 0.5 mg/dL (0.5-0.9); ESTIMATED GFR > 60; GLUCOSE 91 mg/dL (70-104); PHOSPHORUS 3.2 mg/dL (2.7-4.5); POTASSIUM 4.5 mmol/L (3.5-5.1); SODIUM 132 mmol/L (136-145); TCO2 31 mmol/L (25-35)
[2019-11-28] MEDS: ZOCOR PEG SCH (08:10)
[2019-11-28] MEDS: CENTRUM SILVER PO SCH (08:11)
[2019-11-28] MEDS: COZAAR PEG SCH (08:11)
[2019-11-28] MEDS: CARAFATE PEG SCH ×2 (08:11→20:29)
[2019-11-28] MEDS: TAPAZOLE PEG SCH ×2 (08:11→20:30)
[2019-11-28] MEDS: LOVENOX SUBQ SCH (08:11)
[2019-11-28] MEDS: RESTASIS 0.05% OPH DROPS BOTH EYES SCH ×2 (08:11→20:29)
[2019-11-28] MEDS: NORVASC PEG SCH (08:11)
[2019-11-28] MEDS: XANAX GT PRN ×2 (14:35→20:40)
[2019-11-28] MEDS: VANCOMYCIN 1,250 MG in NS 250 ML IV SCH (16:54)
--- NOTE | 2019-11-28 18:01 | PROGRESS NOTE ---
DATE: 11/28/2019 SUBJECTIVE: Patient reports feeling fine. Mild cough is still present but no other complaints noted. OBJECTIVE: Vital Signs: Temperature 98.1 degrees, heart rate 73, respiratory rate 19, blood pressure 130/44, O2 saturation 98% on room air. General Examination: This is a chronically ill- appearing, 74-year-old female lying in bed, in no acute distress. Cardiovascular: S1, S2 heard. No murmurs, gallops, or rubs. Regular rate and rhythm. Respiratory: Clear bilaterally to auscultation. No work of breathing or using accessory muscles. Abdomen: Soft, nontender to palpation. Bowel sounds present. No organomegaly. Extremities: No clubbing, cyanosis, or edema. Peripheral pulses present in both legs. Abdomen: PEG tube in place. No signs of erythema around it. Neurological: Patient is awake, moves 4 extremities. LABORATORY DATA: Reviewed. ASSESSMENT AND PLAN: 1. Bilateral lower lobe pneumonia secondary to aspiration and acute cystitis. We will continue with vancomycin day #9 for above medications. We will continue to complete 10 days of antibiotics. 2. General weakness. The patient is receiving PEG tube feedings. Patient has failure to thrive. 3. History of thyrotoxicosis. Will continue with methimazole. 4. Gastroesophageal reflux disease. We will continue omeprazole. 5. Hypertension. Blood pressure is under control. We will continue her losartan and amlodipine. 6. Disposition. We are waiting for rehab bed. cc: Josue Alonzo MD
[2019-11-28] MEDS: ZOFRAN IV PRN (20:28)
[2019-11-28] MEDS: MELATONIN PEG SCH (20:28)
[2019-11-29] MEDS: AZACTAM 1 GM in NS 50 ML IV SCH ×4 (00:59→23:51)
[2019-11-29] MEDS: REGLAN PEG SCH ×4 (01:32→21:31)
[2019-11-29] MEDS: PRILOSEC PEG SCH (06:24)
[2019-11-29 07:55] LABS: AGAP 8; ALBUMIN 3.6 g/dL (3.5-5.0); BUN 16 mg/dL (8-22); CALCIUM 9.4 mg/dL (8.8-10.2); CHLORIDE 91 mmol/L (98-107); COSMO 259; CREATININE 0.5 mg/dL (0.5-0.9); ESTIMATED GFR > 60; GLUCOSE 87 mg/dL (70-104); PHOSPHORUS 3.2 mg/dL (2.7-4.5); POTASSIUM 4.5 mmol/L (3.5-5.1); SODIUM 129 mmol/L (136-145); TCO2 30 mmol/L (25-35)
[2019-11-29] MEDS: CARAFATE PEG SCH ×2 (08:12→21:31)
[2019-11-29] MEDS: RESTASIS 0.05% OPH DROPS BOTH EYES SCH ×2 (08:13→21:31)
[2019-11-29] MEDS: ZOCOR PEG SCH (08:13)
[2019-11-29] MEDS: CENTRUM SILVER PO SCH (08:13)
[2019-11-29] MEDS: LOVENOX SUBQ SCH (08:13)
[2019-11-29] MEDS: NORVASC PEG SCH (08:13)
[2019-11-29] MEDS: DULCOLAX PR SCH ×2 (08:13→21:31)
[2019-11-29] MEDS: COZAAR PEG SCH (08:13)
[2019-11-29] MEDS: MIRALAX PEG PRN (08:25)
[2019-11-29] MEDS: VANCOMYCIN 1,250 MG in NS 250 ML IV SCH (12:18)
[2019-11-29] MEDS: ZOFRAN IV PRN ×2 (12:25→21:31)
[2019-11-29] MEDS: TAPAZOLE PEG SCH ×2 (14:57→21:31)
--- NOTE | 2019-11-29 15:13 | PROGRESS NOTE ---
DATE: 11/29/2019 SUBJECTIVE: Patient reports feeling fine. Mild cough noted, but no other complaint. OBJECTIVE: Vital Signs: Temperature 98.3 degrees, heart rate 73, respiratory rate 18, blood pressure 140/55, O2 saturation 99% on room air. General: This is a chronically ill-appearing, 74-year-old, female, lying in bed in no acute distress. Cardiovascular: S1, S2 heard. No murmurs, gallops, or rubs. Regular rate and rhythm. Respiratory: Clear bilaterally to auscultation. No work of breathing or using accessory muscles. Abdomen: Soft, nontender to palpation. Bowel sounds present. No organomegaly. PEG tube in place. No signs of erythema around it. Extremities: No clubbing, cyanosis, or edema. Peripheral pulses present in both legs. Neurological: Alert and oriented x3. Moves 4 extremities. LABORATORY DATA: Reviewed. ASSESSMENT AND PLAN: 1. Bilateral lower lobe pneumonia secondary to aspiration and acute cystitis. We will continue with vancomycin and aztreonam, day #10 for both medications. We will complete 14 days of antibiotics. 2. Generalized weakness. The patient continues to receive percutaneous endoscopic gastrostomy tube feedings. We will continue to monitor. 3. History of thyrotoxicosis. We will continue methimazole. 4. Gastroesophageal reflux disease. We will continue with omeprazole via nasogastric tube. 5. Hypertension. Blood pressure is under control. We will continue with the same management. In this case, to start her on amlodipine. 6. Disposition. We are waiting for a rehab bed. The patient has a sister who lives in [place], so we are looking for a bed around that area. We are going to transfer this patient to [facility]. cc: MD SCOTT Foy
[2019-11-29] MEDS: XANAX GT PRN ×2 (16:10→23:50)
[2019-11-29] MEDS: MELATONIN PEG SCH (21:31)
[2019-11-30] MEDS: REGLAN PEG SCH ×4 (01:25→22:44)
[2019-11-30] MEDS ORDERED: VANCOMYCIN 1 GM/NS 1 GM/250 ML IVPB IV ONE (06:00)
[2019-11-30] MEDS: PRILOSEC PEG SCH (06:03)
[2019-11-30 06:14] LABS: AGAP 10; ALBUMIN 3.6 g/dL (3.5-5.0); BUN 20 mg/dL (8-22); CALCIUM 9.5 mg/dL (8.8-10.2); CHLORIDE 91 mmol/L (98-107); COSMO 263; CREATININE 0.4 mg/dL (0.5-0.9); ESTIMATED GFR > 60; GLUCOSE 84 mg/dL (70-104); PHOSPHORUS 3.4 mg/dL (2.7-4.5); POTASSIUM 4.2 mmol/L (3.5-5.1); SODIUM 130 mmol/L (136-145); TCO2 29 mmol/L (25-35)
[2019-11-30] MEDS: AZACTAM 1 GM in NS 50 ML IV SCH ×3 (08:36→23:33)
[2019-11-30] MEDS: ZOFRAN IV PRN ×3 (08:40→22:44)
[2019-11-30] MEDS: CARAFATE PEG SCH ×2 (08:40→22:44)
[2019-11-30] MEDS: COZAAR PEG SCH (08:40)
[2019-11-30] MEDS: LOVENOX SUBQ SCH (08:41)
[2019-11-30] MEDS: ZOCOR PEG SCH (08:41)
[2019-11-30] MEDS: NORVASC PEG SCH (08:41)
[2019-11-30] MEDS: DULCOLAX PR SCH ×2 (08:42→23:32)
[2019-11-30] MEDS: VANCOMYCIN 1,250 MG in NS 250 ML IV SCH (10:42)
[2019-11-30] MEDS: THERA M PLUS PO SCH (10:44)
[2019-11-30] MEDS: TAPAZOLE PEG SCH ×2 (10:45→23:32)
[2019-11-30] MEDS: XANAX GT PRN (13:42)
[2019-11-30] MEDS: MIRALAX PEG PRN (13:42)
--- NOTE | 2019-11-30 14:33 | PROGRESS NOTE ---
DATE: 11/30/2019 SUBJECTIVE: The patient looks well. No major complaints. OBJECTIVE: Blood pressure 150/58, heart rate of 75, respiratory rate 18, temperature 97.9 degrees, 99% on room air. Cardiovascular: Regular rate and rhythm. Pulmonary: Bilateral breath sounds clear to auscultation. GI: Soft, nontender, nondistended. Bowel sounds were positive. Sodium is 130, has been persistently low. PROBLEM LIST: 1. Cystitis with Enterococcus faecalis which is sensitive to vancomycin, ampicillin, sensitive to multiple things. 2. Bilateral pneumonia. The patient is on vancomycin and aztreonam, and will complete 14 days of antibiotics. 3. Weakness. The patient is stable. We will continue to monitor. She is getting percutaneous endoscopic gastrostomy feeding. 4. Thyrotoxicosis, is stable on her methimazole. Her TSH checked on was low but her free T4 was normal and her free T3 was low so I guess she is controlled. 5. Hypertension, continues stable. DISPOSITION: We are looking for rehab placement. We will continue to monitor. cc: Omar Hankins MD
[2019-11-30] MEDS: RESTASIS 0.05% OPH DROPS BOTH EYES SCH (18:25)
[2019-11-30] MEDS: MELATONIN PEG SCH (22:44)
[2019-12-01] MEDS: REGLAN PEG SCH ×4 (02:54→22:59)
[2019-12-01] MEDS: VANCOMYCIN 1,250 MG in NS 250 ML IV SCH ×2 (02:54→23:00)
[2019-12-01] MEDS: RESTASIS 0.05% OPH DROPS BOTH EYES SCH ×3 (04:12→23:00)
[2019-12-01 06:37] LABS: AGAP 10; ALBUMIN 3.5 g/dL (3.5-5.0); BUN 23 mg/dL (8-22); CALCIUM 9.4 mg/dL (8.8-10.2); CHLORIDE 94 mmol/L (98-107); COSMO 267; CREATININE 0.4 mg/dL (0.5-0.9); ESTIMATED GFR > 60; GLUCOSE 81 mg/dL (70-104); PHOSPHORUS 3.2 mg/dL (2.7-4.5); POTASSIUM 4.4 mmol/L (3.5-5.1); SODIUM 132 mmol/L (136-145); TCO2 28 mmol/L (25-35)
[2019-12-01] MEDS: LOVENOX SUBQ SCH (07:27)
[2019-12-01] MEDS: AZACTAM 1 GM in NS 50 ML IV SCH ×2 (07:27→16:15)
[2019-12-01] MEDS: PRILOSEC PEG SCH (07:31)
[2019-12-01] MEDS: CARAFATE PEG SCH ×2 (08:59→22:58)
[2019-12-01] MEDS: DULCOLAX PR SCH ×2 (08:59→23:00)
[2019-12-01] MEDS: COZAAR PEG SCH (09:00)
[2019-12-01] MEDS: NORVASC PEG SCH (09:00)
[2019-12-01] MEDS: TAPAZOLE PEG SCH ×2 (09:00→22:58)
[2019-12-01] MEDS: THERA M PLUS PO SCH (09:00)
[2019-12-01] MEDS: MIRALAX PEG PRN (09:04)
[2019-12-01] MEDS: ZOFRAN IV PRN ×2 (09:26→16:15)
[2019-12-01 15:34] LABS: HEMATOCRIT 35.1 % (37.0-47.0); MCHC 31.3 g/dL (33-37); MCV 89.3 FL (81-99); MPV 10.4 FL (7.4-10.4); RBC 3.93 XMIL (4.2-5.4); RDW 14.8 % (11.5-14.5); WBC 5.95 X1000 (4.8-10.8)
[2019-12-01 15:39] LABS: INR 0.9; PROTIME 12.6 Seconds (11.0-16.0)
--- NOTE | 2019-12-01 16:04 | PROGRESS NOTE ---
DATE: 12/01/2019 SUBJECTIVE: The patient has had some bleeding issues associated with her Lovenox, but no major complaints. She looks well. OBJECTIVE: Blood pressure 132/59, heart rate of 85, respiratory rate 20, temperature 98.1 degrees.HEENT: She also had some gingival bleeding although nothing is noted on exam Cardiovascular: Regular rate and rhythm. Pulmonary: Bilateral breath sounds clear to auscultation. GI: Soft, nontender, nondistended. Bowel sounds are positive. LABORATORY DATA: White count. No CBC today. Sodium 132. BUN, creatinine 23 and 0.4, potassium 4.4, chloride and bicarb 94 and 28, glucose of 81, calcium 9.4. PROBLEM LIST: 1. Acute hemorrhage episode associated with deep venous thrombosis prophylaxis. We will stop her deep venous thrombosis prophylaxis, get a blood count, coags, and follow hemoglobin and hematocrit. 2. Bilateral pneumonia. She is currently on vancomycin and aztreonam and will need a total of 14 days, which it was started on the , as far as the aztreonam and today will be day November 06. 3. Weakness. We will continue to monitor. She is status post percutaneous endoscopic gastrostomy tube for feeding. 4. Thyrotoxicosis is stable on her current methimazole. DISPOSITION: We are waiting on insurance approval. cc: Omar Hankins MD
[2019-12-01] MEDS: ZOCOR PEG SCH (22:59)
[2019-12-01] MEDS: MELATONIN PEG SCH (22:59)
[2019-12-01] MEDS: TYLENOL PEG PRN (23:15)
[2019-12-02] MEDS: AZACTAM 1 GM in NS 50 ML IV SCH ×3 (02:22→23:51)
[2019-12-02] MEDS: REGLAN PEG SCH ×4 (02:24→23:49)
[2019-12-02] MEDS: COZAAR PEG SCH (08:30)
[2019-12-02] MEDS: PRILOSEC PEG SCH (08:30)
[2019-12-02] MEDS: CARAFATE PEG SCH ×2 (08:30→23:49)
[2019-12-02] MEDS: DULCOLAX PR SCH (08:31)
[2019-12-02] MEDS: THERA M PLUS PO SCH (08:31)
[2019-12-02] MEDS: NORVASC PEG SCH (08:31)
[2019-12-02] MEDS: RESTASIS 0.05% OPH DROPS BOTH EYES SCH ×2 (08:32→23:50)
[2019-12-02] MEDS: TAPAZOLE PEG SCH ×2 (08:32→23:50)
[2019-12-02] MEDS: ZOFRAN IV PRN ×4 (08:44→23:51)
[2019-12-02 15:37] LABS: BASO# 0.04 X1000 (0.0-0.2); BASO% 0.6 % (0.0-0.8); EOS# 0.12 X1000 (0.0-0.7); EOS% 1.9 % (0.0-10.0); HEMATOCRIT 33.2 % (37.0-47.0); HEMOGLOBIN 10.3 g/dL (12.0-16.0); IMM GRAN# 0.01 X1000 (0.0-0.04); IMM GRAN% 0.2 % (0.0-0.5); LYMPH# 1.83 X1000 (1.2-3.4); LYMPH% 29.5 % (20.5-51.1); MCH 27.8 PG (27-31); MCV 89.5 FL (81-99); MONO# 0.87 X1000 (0.11-0.59); MPV 10.2 FL (7.4-10.4); NEUT# 3.34 X1000 (1.4-6.5); NEUT% 53.8 % (42.2-75.2); PLT 250 X1000 (130-400); RBC 3.71 XMIL (4.2-5.4); RDW 14.7 % (11.5-14.5); WBC 6.21 X1000 (4.8-10.8)
[2019-12-02] MEDS: VANCOMYCIN 1,250 MG in NS 250 ML IV SCH (15:52)
[2019-12-02] MEDS: TYLENOL PEG PRN (18:41)
--- NOTE | 2019-12-02 21:15 | PROGRESS NOTE ---
DATE: 12/02/2019 SUBJECTIVE: Patient apparently refused to have her labs done this morning. Otherwise, she has no new complaints. OBJECTIVE: Vital signs: Temperature 98, pulse 82, blood pressure 134/51. General: Patient is awake. She states now that she will allow her labs to be redrawn. HEENT: Normocephalic. Neck: Supple. Cardiovascular: Regular rate. Chest: Clear. Abdomen: Soft. Speech is dysarthric but unchanged. ASSESSMENT: 1. Bilateral pneumonia. She is on day 13 of 14 of vancomycin and aztreonam. 2. Generalized weakness. 3. Adult failure to thrive. 4. Protein calorie malnutrition. She is currently getting treatment through her PEG tube. Her albumin actually has improved nicely, currently back to 3.5, although patient still has difficulty swallowing and most likely will not be able to keep up without tube feeds. 5. Thyrotoxicosis, stable on methimazole. 6. Hyponatremia, slowly improving at 132. PLAN: We will continue patient in the hospital. She will get antibiotics tomorrow, and then hopefully after that, she can transition to rehab. cc: Gurinder Wills MD
[2019-12-02] MEDS: ZOCOR PEG SCH (23:49)
[2019-12-02] MEDS: MELATONIN PEG SCH (23:49)
[2019-12-03] MEDS: AZACTAM 1 GM in NS 50 ML IV SCH ×3 (00:57→16:37)
[2019-12-03] MEDS: REGLAN PEG SCH ×4 (00:59→22:29)
[2019-12-03] MEDS: DULCOLAX PR SCH ×3 (01:00→22:32)
[2019-12-03] MEDS: TAPAZOLE PEG SCH ×2 (09:07→22:30)
[2019-12-03] MEDS: RESTASIS 0.05% OPH DROPS BOTH EYES SCH ×2 (09:07→22:29)
[2019-12-03] MEDS: CARAFATE PEG SCH ×2 (09:07→22:29)
[2019-12-03] MEDS: THERA M PLUS PO SCH (09:07)
[2019-12-03] MEDS: COZAAR PEG SCH (09:07)
[2019-12-03] MEDS: PRILOSEC PEG SCH (09:07)
[2019-12-03] MEDS: NORVASC PEG SCH (09:07)
[2019-12-03] MEDS: ZOFRAN IV PRN ×2 (10:38→18:34)
[2019-12-03] MEDS: VANCOMYCIN 1,250 MG in NS 250 ML IV SCH (10:38)
--- NOTE | 2019-12-03 20:46 | PROGRESS NOTE ---
DATE: 12/03/2019 SUBJECTIVE: The patient has no new complaints. PHYSICAL EXAMINATION: Vital Signs: Reviewed. Temp 98 degrees, pulse 84, respiratory rate 18, BP 139/56. General: Patient is in no distress. She is a chronically ill-appearing female who is in no respiratory distress. HEENT: Normocephalic. Neck: Supple. Cardiovascular: Regular rate. Chest: Clear. Abdomen: Soft. Extremities: Moves all extremities. ASSESSMENT: 1. Bilateral pneumonia on day 14 of 14 of antibiotics. 2. Generalized weakness. 3. Thyrotoxicosis on methimazole. 4. Adult failure to thrive with generalized weakness and poor oral intake. Continues tube feedings. PLAN: We will continue the patient in the hospital today to finish up her antibiotics. Hopefully, she can transition to rehabilitation over the next day or 2. cc: Gurinder Wills MD
[2019-12-03] MEDS: MELATONIN PEG SCH (22:29)
[2019-12-03] MEDS: ZOCOR PEG SCH (22:29)
[2019-12-03] MEDS: TYLENOL PEG PRN (22:29)
[2019-12-04] MEDS: REGLAN PEG SCH ×4 (03:53→22:36)
[2019-12-04] MEDS: PRILOSEC PEG SCH (07:00)
[2019-12-04] MEDS: CARAFATE PEG SCH ×2 (10:13→22:35)
[2019-12-04] MEDS: NORVASC PEG SCH (10:13)
[2019-12-04] MEDS: THERA M PLUS PO SCH (10:13)
[2019-12-04] MEDS: COZAAR PEG SCH (10:13)
[2019-12-04] MEDS: TAPAZOLE PEG SCH ×2 (10:13→22:35)
[2019-12-04] MEDS: RESTASIS 0.05% OPH DROPS BOTH EYES SCH ×2 (10:13→22:34)
[2019-12-04] MEDS: DULCOLAX PR SCH ×2 (10:14→22:36)
--- NOTE | 2019-12-04 22:00 | PROGRESS NOTE ---
DATE: 12/04/2019 SUBJECTIVE: The patient has no new complaints. PHYSICAL EXAMINATION: Vital signs reviewed: Temperature 98 degrees, pulse 90, respiratory rate 18, BP 137/52. General: The patient is pleasant. He is in no distress. HEENT: Normocephalic. Neck: Supple. Cardiovascular: Regular rate. Chest: Clear. Abdomen: Soft, nondistended. Extremities: Moves all extremities. ASSESSMENT: 1. Adult failure to thrive with generalized weakness. 2. Bilateral pneumonia. Currently she is off vancomycin and aztreonam, been treated 14 days with each. 3. Generalized weakness. 4. Thyrotoxicosis, currently on methimazole. PLAN: We will continue the patient in the hospital, waiting on insurance approval for rehab placement. cc: Gurinder Wills MD
[2019-12-04] MEDS: ZOCOR PEG SCH (22:35)
[2019-12-04] MEDS: MELATONIN PEG SCH (22:35)
[2019-12-04] MEDS: XANAX GT PRN (22:35)
[2019-12-05] MEDS: PRILOSEC PEG SCH (05:59)
[2019-12-05] MEDS: REGLAN PEG SCH ×3 (05:59→14:59)
[2019-12-05] MEDS: THERA M PLUS PO SCH (10:40)
[2019-12-05] MEDS: NORVASC PEG SCH (10:40)
[2019-12-05] MEDS: COZAAR PEG SCH (10:40)
[2019-12-05] MEDS: DULCOLAX PR SCH ×2 (10:41→10:53)
[2019-12-05] MEDS: CARAFATE PEG SCH (10:41)
[2019-12-05] MEDS: TAPAZOLE PEG SCH (10:54)
[2019-12-05] MEDS: RESTASIS 0.05% OPH DROPS BOTH EYES SCH (11:05)
--- NOTE | 2019-12-05 22:39 | PROGRESS NOTE ---
DATE: 12/05/2019 SUBJECTIVE: Patient has no complaints. States that overall she is feeling better but still very tired, fatigued, unable to care for herself, unable to get out of bed or ambulate. PHYSICAL EXAMINATION: Vital Signs: Temperature 98 degrees, pulse 90, respiratory rate 18, BP 137/52. General: Patient is in no respiratory distress. HEENT: Normocephalic. Neck: Supple. Cardiovascular: Regular rate. Chest: Clear. Abdomen: Soft. Neurologic: She has garbled speech but this is chronic. Has generalized weakness, again chronic. PLAN: We are going to continue patient in the hospital. Continue to follow her bilateral pneumonia which appears to have resolved. She is off antibiotics. We will recheck a chest x-ray. Continue physical therapy for generalized weakness. Continue methimazole for her thyroid and hopefully she can transition to rehab soon. cc: Gurinder Wills MD
[2019-12-06] MEDS: REGLAN PEG SCH ×5 (00:30→22:40)
[2019-12-06] MEDS: DULCOLAX PR SCH ×3 (01:07→22:41)
[2019-12-06] MEDS: CARAFATE PEG SCH ×3 (01:07→22:41)
[2019-12-06] MEDS: MELATONIN PEG SCH ×2 (01:08→22:40)
[2019-12-06] MEDS: RESTASIS 0.05% OPH DROPS BOTH EYES SCH ×3 (01:08→22:41)
[2019-12-06] MEDS: TAPAZOLE PEG SCH ×3 (01:08→22:41)
[2019-12-06] MEDS: ZOCOR PEG SCH ×2 (01:09→22:40)
[2019-12-06] MEDS: XANAX GT PRN ×2 (01:12→22:40)
[2019-12-06] MEDS: TYLENOL PEG PRN ×2 (01:13→22:40)
[2019-12-06] MEDS: PRILOSEC PEG SCH (06:46)
[2019-12-06] MEDS: THERA M PLUS PO SCH (10:37)
[2019-12-06] MEDS: NORVASC PEG SCH (10:37)
[2019-12-06] MEDS: COZAAR PEG SCH (10:37)
[2019-12-06] MEDS: MIRALAX PEG PRN (11:00)
--- NOTE | 2019-12-06 14:15 | PROGRESS NOTE ---
DATE: 12/06/2019 SUBJECTIVE: Patient has no new complaints. Denies any fevers or chills. PHYSICAL EXAMINATION: Vital Signs: Reviewed. Temperature 97.7 degrees, pulse 85, respiratory rate 18, blood pressure 143/56. General: Patient is awake. Currently she is in no respiratory distress. She is lying in bed. HEENT: Normocephalic. Neck: Supple. Cardiovascular: Regular rate. Chest: Clear. Abdomen: Soft. Extremities: Moves all extremities. Neurologic: No changes. ASSESSMENT: 1. Adult failure to thrive with generalized weakness. 2. Bilateral pneumonia, resolved. 3. Thyrotoxicosis. 4. Hyponatremia. 5. Mild anemia. 6. Hypertension. PLAN: Unfortunately, it appears that patient's insurance has declined transitioning her to rehab. She is an extremely poor candidate to go home. She will certainly be back as she currently is incapable of caring for herself, although she recently was at home caring for herself. Obviously, we will have to attempt to persuade her insurance. cc: Gurinder Wills MD
[2019-12-07] MEDS: REGLAN PEG SCH ×4 (04:24→23:51)
[2019-12-07] MEDS: PRILOSEC PEG SCH (06:34)
[2019-12-07 06:45] LABS: HEMATOCRIT 34.1 % (37.0-47.0); HEMOGLOBIN 10.7 g/dL (12.0-16.0); MCHC 31.4 g/dL (33-37); MCV 89.3 FL (81-99); MPV 10.9 FL (7.4-10.4); RBC 3.82 XMIL (4.2-5.4); RDW 14.6 % (11.5-14.5); WBC 5.45 X1000 (4.8-10.8)
[2019-12-07 07:14] LABS: AGAP 11; ALBUMIN 3.5 g/dL (3.5-5.0); ALKALINE PHOSPHATASE 98 U/L (32-104); BUN 26 mg/dL (8-22); CALCIUM 9.5 mg/dL (8.8-10.2); CHLORIDE 93 mmol/L (98-107); COSMO 271; CREATININE 0.4 mg/dL (0.5-0.9); ESTIMATED GFR > 60; GLUCOSE 90 mg/dL (70-104); GOT 24 U/L (10-30); GPT 20 U/L (10-36); MAGNESIUM 1.9 mg/dL (1.5-2.7); POTASSIUM 3.9 mmol/L (3.5-5.1); SODIUM 133 mmol/L (136-145); TCO2 29 mmol/L (25-35); TOTAL PROTEIN 6.5 g/dL (6.3-8.3)
[2019-12-07] MEDS: MIRALAX PEG PRN (08:30)
[2019-12-07] MEDS: THERA M PLUS PO SCH (08:31)
[2019-12-07] MEDS: NORVASC PEG SCH (08:31)
[2019-12-07] MEDS: RESTASIS 0.05% OPH DROPS BOTH EYES SCH ×2 (08:31→23:51)
[2019-12-07] MEDS: COZAAR PEG SCH (08:31)
[2019-12-07] MEDS: TAPAZOLE PEG SCH (08:31)
[2019-12-07] MEDS: CARAFATE PEG SCH ×2 (08:31→23:49)
[2019-12-07] MEDS: DULCOLAX PR SCH ×2 (08:50→23:51)
--- NOTE | 2019-12-07 16:40 | PROGRESS NOTE ---
DATE: 12/07/2019 SUBJECTIVE: Patient with no complaints. PHYSICAL EXAMINATION: Vital Signs: Reviewed. Temp 98 degrees, pulse 92, respiratory rate 18, BP 136/58. General: Patient is an elderly female who is in no current respiratory distress. HEENT: Normocephalic. Neck: Supple. Cardiovascular: Regular rate. Chest: Clear. Abdomen: Soft. Extremities: Moves all extremities although generalized weakness. ASSESSMENT: 1. Thyrotoxicosis. 2. Bilateral pneumonia, resolved. 3. Generalized weakness. 4. Hyponatremia. 5. Adult failure to thrive. PLAN: We will continue patient in the hospital today. We will ask Radiographer for assistance tomorrow regarding discharge. Apparently her [employer] has denied her the opportunity to go to rehab. Patient is incapable of caring for herself at home and certainly would be right back to the hospital if we discharge her. cc: Gurinder Wills MD
[2019-12-07] MEDS: TYLENOL PEG PRN (23:49)
[2019-12-07] MEDS: MELATONIN PEG SCH (23:50)
[2019-12-08] MEDS: TAPAZOLE PEG SCH ×2 (00:19→08:47)
[2019-12-08] MEDS: ZOCOR PEG SCH (00:19)
[2019-12-08] MEDS: XANAX GT PRN (00:20)
[2019-12-08] MEDS: REGLAN PEG SCH ×3 (02:28→14:38)
[2019-12-08] MEDS: PRILOSEC PEG SCH (06:14)
[2019-12-08] MEDS: NORVASC PEG SCH (08:47)
[2019-12-08] MEDS: RESTASIS 0.05% OPH DROPS BOTH EYES SCH (08:47)
[2019-12-08] MEDS: COZAAR PEG SCH (08:47)
[2019-12-08] MEDS: THERA M PLUS PO SCH (08:47)
[2019-12-08] MEDS: CARAFATE PEG SCH (08:47)
[2019-12-08] MEDS: DULCOLAX PR SCH (11:37)
[2019-12-08] MEDS: TYLENOL PEG PRN (12:05)
--- NOTE | 2019-12-08 19:19 | PROGRESS NOTE ---
DATE: 12/08/2019 SUBJECTIVE: Patient has no new complaints. PHYSICAL EXAMINATION: Vital Signs: Reviewed. Temperature 98.6 degrees, pulse 68, respiratory 18, BP 143/59. General: Patient is in no current distress, although, she is chronically ill appearing. HEENT: Normocephalic. Neck: Supple. Cardiovascular: Regular rate. Chest: Clear. Abdomen: Soft. Extremities: Moves all extremities although generalized weakness. No edema. ASSESSMENT: 1. Hyperthyroidism. Her TSH is 0.08. We are going to increase her methimazole to 10 b.i.d.. 2. Adult failure to thrive with generalized weakness. The patient is incapable of caring for herself at home and needs further assistance with physical therapy. Hopefully inpatient will be available at some point. 3. Bilateral pneumonia, resolved. cc: Gurinder Wills MD
[2019-12-09] MEDS: XANAX GT PRN ×2 (00:09→23:47)
[2019-12-09] MEDS: CARAFATE PEG SCH ×3 (00:09→23:47)
[2019-12-09] MEDS: TYLENOL PEG PRN ×2 (00:09→23:47)
[2019-12-09] MEDS: ZOCOR PEG SCH ×2 (00:10→23:48)
[2019-12-09] MEDS: REGLAN PEG SCH ×5 (00:11→23:47)
[2019-12-09] MEDS: RESTASIS 0.05% OPH DROPS BOTH EYES SCH ×3 (00:11→23:49)
[2019-12-09] MEDS: DULCOLAX PR SCH ×2 (00:11→09:02)
[2019-12-09] MEDS: MELATONIN PEG SCH ×2 (00:11→23:47)
[2019-12-09] MEDS: TAPAZOLE PEG SCH ×3 (00:12→23:48)
[2019-12-09] MEDS: PRILOSEC PEG SCH (06:33)
[2019-12-09] MEDS: NORVASC PEG SCH (09:01)
[2019-12-09] MEDS: THERA M PLUS PO SCH (09:02)
[2019-12-09] MEDS: COZAAR PEG SCH (09:02)
--- NOTE | 2019-12-09 19:02 | PROGRESS NOTE ---
DATE: 12/09/2019 SUBJECTIVE: The patient with no complaints. She is sleeping comfortably, easily awakened. PHYSICAL EXAMINATION: Vital Signs: Reviewed. Temp 97.5 degrees, pulse 89, respiratory rate 18, BP 145/57. General: Patient is awake. Currently in no respiratory distress. HEENT: Normocephalic. Neck: Supple. Cardiovascular: Regular rate. Chest: Clear no crackles. No wheezing. Abdomen: Soft. Extremities: Moves all extremities. ASSESSMENT: 1. Hyperparathyroidism. We are going to continue methimazole at 10 mg. Recheck her level in the morning. 2. Adult failure to thrive with generalized weakness. 3. Anemia of chronic disease. 4. Hyponatremia. 5. Hypertension. PLAN: We will continue patient in the hospital. Continue tube feedings, physical therapy and will follow. The patient, unfortunately, cannot be discharged home as she is incapable of caring for herself. cc: Gurinder Wills MD
[2019-12-10] MEDS: DULCOLAX PR SCH ×3 (00:15→23:40)
[2019-12-10] MEDS: REGLAN PEG SCH ×4 (03:45→23:37)
[2019-12-10 06:11] LABS: HEMATOCRIT 34.8 % (37.0-47.0); HEMOGLOBIN 10.9 g/dL (12.0-16.0); MCH 28.2 PG (27-31); MCHC 31.3 g/dL (33-37); MCV 90.2 FL (81-99); MPV 10.5 FL (7.4-10.4); RBC 3.86 XMIL (4.2-5.4); RDW 14.6 % (11.5-14.5); WBC 4.99 X1000 (4.8-10.8)
[2019-12-10 06:34] LABS: AGAP 11; ALBUMIN 3.6 g/dL (3.5-5.0); ALKALINE PHOSPHATASE 104 U/L (32-104); BUN 26 mg/dL (8-22); CALCIUM 9.7 mg/dL (8.8-10.2); CHLORIDE 94 mmol/L (98-107); COSMO 276; CREATININE 0.5 mg/dL (0.5-0.9); ESTIMATED GFR > 60; GLUCOSE 93 mg/dL (70-104); GOT 25 U/L (10-30); GPT 19 U/L (10-36); POTASSIUM 3.9 mmol/L (3.5-5.1); SODIUM 136 mmol/L (136-145); TCO2 31 mmol/L (25-35); TOTAL PROTEIN 6.5 g/dL (6.3-8.3)
[2019-12-10] MEDS: PRILOSEC PEG SCH (06:42)
[2019-12-10] MEDS: NORVASC PEG SCH (09:08)
[2019-12-10] MEDS: TAPAZOLE PEG SCH ×2 (09:08→23:38)
[2019-12-10] MEDS: COZAAR PEG SCH (09:08)
[2019-12-10] MEDS: CARAFATE PEG SCH ×2 (09:08→23:37)
[2019-12-10] MEDS: THERA M PLUS PO SCH (09:08)
[2019-12-10] MEDS: RESTASIS 0.05% OPH DROPS BOTH EYES SCH ×2 (12:19→23:39)
--- NOTE | 2019-12-10 21:00 | PROGRESS NOTE ---
DATE: 12/10/2019 SUBJECTIVE: Patient with no new complaints. PHYSICAL EXAMINATION: Vital signs: Temperature 98 degrees, pulse 85, respiratory rate 18, BP 132/72. General: Patient is a chronically ill-appearing, frail, elderly female who is in no respiratory distress. HEENT: Normocephalic. Neck: Supple. Cardiovascular: Regular rate. Chest: Clear. Abdomen: Soft. Extremities: Moves all extremities. ASSESSMENT: 1. Adult failure to thrive with generalized weakness, currently still requiring percutaneous endoscopic gastrostomy tube for feeding. 2. Chronic dysphagia. 3. Hyperthyroidism. Patient currently is on Tapazole 10 b.i.d. TSH continues to be elevated at 0.05; therefore, we are going to increase to 10 t.i.d., and will follow. cc: Gurinder Wills MD
[2019-12-10] MEDS: XANAX GT PRN (23:37)
[2019-12-10] MEDS: MELATONIN PEG SCH (23:37)
[2019-12-10] MEDS: TYLENOL PEG PRN (23:37)
[2019-12-10] MEDS: ZOCOR PEG SCH (23:39)
[2019-12-11] MEDS: REGLAN PEG SCH ×4 (01:39→23:19)
[2019-12-11] MEDS: PRILOSEC PEG SCH (06:29)
[2019-12-11] MEDS: RESTASIS 0.05% OPH DROPS BOTH EYES SCH ×2 (10:27→23:17)
[2019-12-11] MEDS: THERA M PLUS PO SCH (10:28)
[2019-12-11] MEDS: COZAAR PEG SCH (10:28)
[2019-12-11] MEDS: TAPAZOLE PEG SCH ×3 (10:28→23:17)
[2019-12-11] MEDS: CARAFATE PEG SCH ×2 (10:28→23:18)
[2019-12-11] MEDS: NORVASC PEG SCH (10:28)
[2019-12-11] MEDS: DULCOLAX PR SCH ×2 (10:40→23:19)
--- NOTE | 2019-12-11 20:12 | PROGRESS NOTE ---
DATE: 12/11/2019 SUBJECTIVE: Patient is sleeping comfortably. No new complaints. PHYSICAL EXAMINATION: Vital Signs: Reviewed. Temperature 98.6 degrees, pulse 91, respiratory rate 18, BP 114/48. General: Patient is a chronically ill-appearing, elderly female. HEENT: Normocephalic. Neck: Supple. Cardiovascular: Regular rate. Chest: Decreased, but equal. Abdomen: Soft. Neurologic: No focal changes. ASSESSMENT: 1. Hyperthyroidism. Continue methimazole 10 mg t.i.d. 2. Generalized weakness with adult failure to thrive. 3. Hyponatremia, resolved. 4. Bilateral pneumonia, resolved. 5. Nutrition. We are going to continue percutaneous endoscopic gastrostomy tube and will follow. cc: Gurinder Wills MD
[2019-12-11] MEDS: ZOCOR PEG SCH (23:18)
[2019-12-11] MEDS: XANAX GT PRN (23:18)
[2019-12-11] MEDS: MELATONIN PEG SCH (23:19)
[2019-12-12] MEDS: COZAAR PEG SCH (08:04)
[2019-12-12] MEDS: CARAFATE PEG SCH ×2 (08:04→22:53)
[2019-12-12] MEDS: REGLAN PEG SCH ×4 (08:04→22:53)
[2019-12-12] MEDS: TAPAZOLE PEG SCH ×3 (08:05→22:51)
[2019-12-12] MEDS: RESTASIS 0.05% OPH DROPS BOTH EYES SCH ×2 (08:05→22:55)
[2019-12-12] MEDS: NORVASC PEG SCH (08:05)
[2019-12-12] MEDS: DULCOLAX PR SCH ×2 (08:05→08:23)
[2019-12-12] MEDS: THERA M PLUS PO SCH (08:06)
[2019-12-12] MEDS: PRILOSEC PEG SCH (08:06)
--- NOTE | 2019-12-12 20:37 | PROGRESS NOTE ---
DATE: 12/12/2019 SUBJECTIVE: The patient currently has no changes, no new complaints. OBJECTIVE: Vital signs reviewed. Temperature 98.6 degrees, pulse 86, respiratory rate 18, BP 130/62.General: The patient is pleasant. She is in no respiratory distress, lying flat in bed. HEENT: Normocephalic. Neck supple. Cardiovascular: Regular rate. Chest clear. Abdomen soft. PEG tube in place. Extremities: Moves all extremities. ASSESSMENT: 1. Adult failure to thrive. 2. Generalized weakness. 3. Poor nutrition. Currently requires percutaneous endoscopic gastrostomy tube. 4. Dysphagia, for which she has to have a percutaneous endoscopic gastrostomy tube for nutrition. 5. Hypothyroidism. PLAN: Overall the patient is stable. She unfortunately, however, is still too weak to be able to discharge home. We will continue looking for placement. cc: Gurinder Wills MD
[2019-12-12] MEDS: MELATONIN PEG SCH (22:52)
[2019-12-12] MEDS: XANAX GT PRN (22:52)
[2019-12-12] MEDS: ZOCOR PEG SCH (22:53)
[2019-12-12] MEDS: TYLENOL PEG PRN (22:53)
[2019-12-12] MEDS: CALMOSEPTINE OINTMENT TOP PRN (22:54)
[2019-12-13] MEDS: DULCOLAX PR SCH ×3 (07:51→22:09)
[2019-12-13] MEDS: PRILOSEC PEG SCH (07:52)
[2019-12-13] MEDS: REGLAN PEG SCH ×4 (07:52→22:06)
[2019-12-13] MEDS: THERA M PLUS PO SCH (11:17)
[2019-12-13] MEDS: TAPAZOLE PEG SCH ×3 (11:17→22:07)
[2019-12-13] MEDS: RESTASIS 0.05% OPH DROPS BOTH EYES SCH ×2 (11:18→22:08)
[2019-12-13] MEDS: COZAAR PEG SCH (11:18)
[2019-12-13] MEDS: NORVASC PEG SCH (11:18)
[2019-12-13] MEDS: CARAFATE PEG SCH ×2 (11:18→22:09)
--- NOTE | 2019-12-13 14:41 | PROGRESS NOTE ---
DATE: 12/13/2019 SUBJECTIVE: Patient noncompliance. PHYSICAL EXAMINATION: Vital Signs: Reviewed temp 97.6 degrees, pulse 60, respiratory 18, BP 132/56. General: Patient is awake, currently in no distress. HEENT: Normocephalic. Neck: Supple. Cardiovascular: Regular rate. Chest: Clear. Abdomen: Soft. Extremities: Moves all extremities. ASSESSMENT: 1. Adult failure to thrive with generalized weakness. 2. Bilateral pneumonia, resolved. 3. Hypertension, stable. 4. Moderate protein calorie malnutrition. Continue current treatment. 5. Dysphagia. 6. Hypothyroidism. PLAN: We will continue in the hospital until which time further discharge plans can be arranged. cc: Gurinder Wills MD MTDD
[2019-12-13] MEDS: ZOCOR PEG SCH (22:06)
[2019-12-13] MEDS: TYLENOL PEG PRN (22:07)
[2019-12-13] MEDS: MELATONIN PEG SCH (22:08)
[2019-12-13] MEDS: XANAX GT PRN (22:08)
[2019-12-14] MEDS: REGLAN PEG SCH ×4 (02:46→22:44)
[2019-12-14] MEDS: PRILOSEC PEG SCH (06:40)
[2019-12-14] MEDS: RESTASIS 0.05% OPH DROPS BOTH EYES SCH ×2 (10:13→22:43)
[2019-12-14] MEDS: MIRALAX PEG PRN (10:13)
[2019-12-14] MEDS: TAPAZOLE PEG SCH ×3 (10:14→22:43)
[2019-12-14] MEDS: THERA M PLUS PO SCH (10:14)
[2019-12-14] MEDS: CARAFATE PEG SCH ×2 (10:14→22:43)
[2019-12-14] MEDS: NORVASC PEG SCH (10:14)
[2019-12-14] MEDS: COZAAR PEG SCH (10:14)
[2019-12-14] MEDS: DULCOLAX PR SCH ×2 (10:15→22:44)
--- NOTE | 2019-12-14 13:24 | PROGRESS NOTE ---
DATE: 12/14/2019 SUBJECTIVE: No new complaints. She still has intermittent nausea after tube feeds. PHYSICAL EXAMINATION: Temperature 97.8, pulse 83, respiratory rate 18, BP 119/46. General: The patient is awake, pleasant, in no current respiratory distress. HEENT: Normocephalic. Neck: Supple. Cardiovascular: Regular rate. Chest: Clear. Abdomen: Soft. Extremities: Moves all extremities, although generalized weakness. ASSESSMENT: 1. Generalized weakness with adult failure to thrive. 2. Dysphagia requiring percutaneous endoscopic gastrostomy tube feeds. 3. Hypothyroidism. PLAN: We will continue patient in the hospital until which time further long-term care can be arranged. cc: Gurinder Wills MD
[2019-12-14] MEDS: MELATONIN PEG SCH (22:43)
[2019-12-14] MEDS: TYLENOL PEG PRN (22:43)
[2019-12-14] MEDS: ZOCOR PEG SCH (22:44)
[2019-12-15] MEDS: REGLAN PEG SCH ×4 (02:47→22:59)
[2019-12-15] MEDS: PRILOSEC PEG SCH ×2 (05:30→06:54)
[2019-12-15] MEDS: XANAX GT PRN ×2 (05:30→22:57)
[2019-12-15] MEDS: TAPAZOLE PEG SCH ×3 (10:26→22:55)
[2019-12-15] MEDS: COZAAR PEG SCH (10:27)
[2019-12-15] MEDS: CARAFATE PEG SCH ×2 (10:27→22:57)
[2019-12-15] MEDS: THERA M PLUS PO SCH (10:27)
[2019-12-15] MEDS: RESTASIS 0.05% OPH DROPS BOTH EYES SCH ×2 (10:27→22:55)
[2019-12-15] MEDS: NORVASC PEG SCH (10:27)
[2019-12-15] MEDS: DULCOLAX PR SCH ×2 (10:28→22:59)
[2019-12-15] MEDS: TYLENOL PEG PRN ×2 (14:20→22:56)
--- NOTE | 2019-12-15 19:07 | PROGRESS NOTE ---
DATE: 12/15/2019 SUBJECTIVE: Patient with no complaints. OBJECTIVE: Vital Signs: Reviewed. Temperature 98 degrees, pulse 81, respiratory rate 18, BP 141/58. General: Patient is pleasant. She is lying in bed. She is in no distress. HEENT: Normocephalic. Neck: Supple. Cardiovascular: Regular rate. Chest: Clear and nonlabored. Abdomen: Soft, nondistended. PEG tube in place. Extremities: Moves all extremities. Trace edema. Neurologic: No changes. ASSESSMENT: 1. Bilateral pneumonia, resolved. 2. Generalized weakness with adult failure to thrive. 3. Hyperthyroidism. TSH is still elevated despite she had the Tapazole. We will continue that for now. 4. Generalized weakness requiring additional care. PLAN: We are going to continue patient in the hospital. She does have a history of situational anxiety that has since resolved. Overall she has improved but she is still physically too weak to go home. She is stable medically, and we will discharge to rehab when bed is available. cc: Gurinder Wills MD
[2019-12-15] MEDS: MELATONIN PEG SCH (22:57)
[2019-12-15] MEDS: ZOCOR PEG SCH (22:57)
[2019-12-16] MEDS: REGLAN PEG SCH ×4 (04:31→22:22)
[2019-12-16] MEDS: PRILOSEC PEG SCH (07:31)
[2019-12-16] MEDS: COZAAR PEG SCH (09:21)
[2019-12-16] MEDS: THERA M PLUS PO SCH (09:21)
[2019-12-16] MEDS: TAPAZOLE PEG SCH ×3 (09:21→22:21)
[2019-12-16] MEDS: NORVASC PEG SCH (09:21)
[2019-12-16] MEDS: CARAFATE PEG SCH ×2 (09:21→22:22)
[2019-12-16] MEDS: RESTASIS 0.05% OPH DROPS BOTH EYES SCH ×2 (09:21→22:22)
[2019-12-16] MEDS: DULCOLAX PR SCH ×2 (09:22→22:23)
[2019-12-16] MEDS: TYLENOL PEG PRN (22:20)
[2019-12-16] MEDS: XANAX GT PRN (22:21)
[2019-12-16] MEDS: MELATONIN PEG SCH (22:21)
[2019-12-16] MEDS: ZOCOR PEG SCH (22:21)
[2019-12-17] MEDS: REGLAN PEG SCH ×4 (02:11→22:38)
[2019-12-17] MEDS: PRILOSEC PEG SCH ×2 (04:47→06:13)
[2019-12-17] MEDS: NORVASC PEG SCH (09:29)
[2019-12-17] MEDS: RESTASIS 0.05% OPH DROPS BOTH EYES SCH ×2 (09:29→22:38)
[2019-12-17] MEDS: TAPAZOLE PEG SCH ×4 (09:29→22:37)
[2019-12-17] MEDS: CARAFATE PEG SCH ×2 (09:29→22:37)
[2019-12-17] MEDS: COZAAR PEG SCH (09:29)
[2019-12-17] MEDS: THERA M PLUS PO SCH (09:29)
[2019-12-17] MEDS: MIRALAX PEG PRN (09:39)
[2019-12-17] MEDS: CALMOSEPTINE OINTMENT TOP PRN (09:39)
[2019-12-17] MEDS: DULCOLAX PR SCH ×2 (09:57→22:39)
--- NOTE | 2019-12-17 21:43 | PROGRESS NOTE ---
DATE: 12/17/2019 SUBJECTIVE: Patient without complaints. PHYSICAL EXAMINATION: Vital Signs: Reviewed. Temp 97.5 degrees, pulse 85, respiratory rate 18, BP 136/80. General: Patient is in no distress. She is lying in bed. HEENT: Normocephalic. Neck: Supple. Cardiovascular: Regular rate. Chest: Clear. Abdomen: Soft. ASSESSMENT: 1. Bilateral pneumonia. 2. Generalized weakness. 3. Hypothyroidism. 4. Hyponatremia, resolved. PLAN: We are going to continue the patient in the hospital until she can transition. cc: Gurinder Wills MD
[2019-12-17] MEDS: MELATONIN PEG SCH (22:37)
[2019-12-17] MEDS: XANAX GT PRN (22:37)
[2019-12-17] MEDS: TYLENOL PEG PRN (22:38)
[2019-12-17] MEDS: ZOCOR PEG SCH (22:38)
[2019-12-18] MEDS: REGLAN PEG SCH ×4 (03:07→22:19)
[2019-12-18] MEDS: PRILOSEC PEG SCH (06:39)
[2019-12-18] MEDS: CARAFATE PEG SCH ×2 (09:50→22:19)
[2019-12-18] MEDS: NORVASC PEG SCH (09:50)
[2019-12-18] MEDS: COZAAR PEG SCH (09:50)
[2019-12-18] MEDS: THERA M PLUS PO SCH (09:51)
[2019-12-18] MEDS: DULCOLAX PR SCH ×2 (09:51→22:20)
[2019-12-18] MEDS: RESTASIS 0.05% OPH DROPS BOTH EYES SCH ×2 (09:51→22:20)
[2019-12-18] MEDS: TAPAZOLE PEG SCH ×3 (09:51→22:19)
--- NOTE | 2019-12-18 22:16 | PROGRESS NOTE ---
DATE: 12/18/2019 SUBJECTIVE: Patient with no complaints. PHYSICAL EXAMINATION: Vital Signs: Reviewed. Temperature 98.2 degrees, pulse 75, respiratory rate 18, BP 130/57. General: Patient is pleasant. She is awake and alert. She is in no distress. Dysarthric speech is unchanged. Cardiovascular: Regular rate. Chest: Clear. Abdomen: Soft. ASSESSMENT: 1. Bilateral pneumonia. Resolved. 2. Hyponatremia. Resolved. 3. 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 Stable. 4. Hyperthyroidism. 5. Generalized weakness. PLAN: We are going to continue patient in the hospital, continue to follow. No current changes. cc: Gurinder Wills MD
[2019-12-18] MEDS: TYLENOL PEG PRN (22:19)
[2019-12-18] MEDS: XANAX GT PRN (22:19)
[2019-12-18] MEDS: MELATONIN PEG SCH (22:20)
[2019-12-18] MEDS: ZOCOR PEG SCH (22:20)
[2019-12-19] MEDS: REGLAN PEG SCH ×4 (02:32→22:18)
[2019-12-19] MEDS: PRILOSEC PEG SCH ×2 (06:19→06:46)
[2019-12-19] MEDS: XANAX GT PRN ×2 (06:46→22:22)
[2019-12-19] MEDS: TYLENOL PEG PRN (06:46)
[2019-12-19] MEDS: THERA M PLUS PO SCH (09:37)
[2019-12-19] MEDS: CARAFATE PEG SCH ×2 (09:37→22:17)
[2019-12-19] MEDS: NORVASC PEG SCH (09:37)
[2019-12-19] MEDS: TAPAZOLE PEG SCH ×3 (09:38→22:18)
[2019-12-19] MEDS: COZAAR PEG SCH (09:38)
[2019-12-19] MEDS: RESTASIS 0.05% OPH DROPS BOTH EYES SCH ×2 (09:38→22:18)
[2019-12-19] MEDS: DULCOLAX PR SCH ×2 (13:08→22:17)
[2019-12-19] MEDS: ZOCOR PEG SCH (22:17)
[2019-12-19] MEDS: MELATONIN PEG SCH (22:17)
--- NOTE | 2019-12-19 23:56 | PROGRESS NOTE ---
DATE: 12/19/2019 SUBJECTIVE: Patient with no new complaints. PHYSICAL EXAMINATION: Vital signs reviewed: Temperature 98.6 degrees, pulse 95, respiratory rate 18, BP 148/76. General: The patient is pleasant. She is in no respiratory distress. HEENT: Normocephalic. Neck: Supple. Cardiovascular: Regular rate. Chest: Clear. Abdomen: Soft. Extremities: Moves all extremities, although marked generalized weakness. ASSESSMENT: 1. Generalized weakness. 2. Hyponatremia. 3. Hypertension, stable. 4. Hyperthyroidism. PLAN: We are going to continue the patient in the hospital. Continue PEG tube feeds. Continue Tapazole. Continue to follow her blood pressures. Hopefully, she can transition to rehab soon. cc: uGrinder Wills MD
[2019-12-20] MEDS: REGLAN PEG SCH ×4 (05:56→23:11)
[2019-12-20] MEDS: PRILOSEC PEG SCH (07:02)
[2019-12-20] MEDS: NORVASC PEG SCH (10:30)
[2019-12-20] MEDS: THERA M PLUS PO SCH (10:30)
[2019-12-20] MEDS: RESTASIS 0.05% OPH DROPS BOTH EYES SCH ×2 (10:30→23:12)
[2019-12-20] MEDS: CARAFATE PEG SCH ×2 (10:30→23:11)
[2019-12-20] MEDS: COZAAR PEG SCH (10:31)
[2019-12-20] MEDS: TAPAZOLE PEG SCH ×3 (10:31→23:10)
[2019-12-20] MEDS: DULCOLAX PR SCH ×2 (12:54→23:11)
--- NOTE | 2019-12-20 18:44 | PROGRESS NOTE ---
DATE: 12/20/2019 SUBJECTIVE: Patient with no complaints. She is sleeping soundly, easily awakened. OBJECTIVE: Vital Signs: Reviewed. Temperature 97.8, pulse 90, respiratory rate 18, BP 138/59. General: Patient is pleasant. HEENT: Normocephalic. Neck: Supple. Cardiovascular: Regular rate. Chest: Clear. Abdomen: Soft. ASSESSMENT: 1. Generalized weakness with adult failure to thrive with falls. 2. Hyperthyroidism. 3. Dysphagia. 4. Hyponatremia. PLAN: We will continue patient in the hospital. Transition to rehab. cc: Gurinder Wills MD
[2019-12-20] MEDS: XANAX GT PRN (23:10)
[2019-12-20] MEDS: MELATONIN PEG SCH (23:11)
[2019-12-20] MEDS: ZOCOR PEG SCH (23:11)
[2019-12-20] MEDS: TYLENOL PEG PRN (23:18)
[2019-12-21] MEDS: REGLAN PEG SCH ×4 (02:29→22:18)
[2019-12-21] MEDS: PRILOSEC PEG SCH (06:27)
[2019-12-21] MEDS: TAPAZOLE PEG SCH ×3 (09:47→22:19)
[2019-12-21] MEDS: RESTASIS 0.05% OPH DROPS BOTH EYES SCH ×2 (09:47→22:19)
[2019-12-21] MEDS: THERA M PLUS PO SCH (09:48)
[2019-12-21] MEDS: CARAFATE PEG SCH ×2 (09:48→22:19)
[2019-12-21] MEDS: COZAAR PEG SCH (09:48)
[2019-12-21] MEDS: NORVASC PEG SCH (09:48)
[2019-12-21] MEDS: MIRALAX PEG PRN (09:49)
[2019-12-21] MEDS: DULCOLAX PR SCH ×2 (09:49→22:19)
[2019-12-21] MEDS: TYLENOL PEG PRN ×2 (12:16→22:18)
--- NOTE | 2019-12-21 17:22 | Diag Imaging Result Doc PS360 ---
KUB ABDOMEN - 12/21/2019 INDICATION: pain/constipation? COMPARISON: None FINDINGS: There is a G-tube in the left upper quadrant. There is no bowel obstruction or free air. No significant constipation. IMPRESSION: No acute disease. Electronically signed by Chris Sweet 12/21/2019 5:19 PM
--- NOTE | 2019-12-21 18:00 | PROGRESS NOTE ---
DATE: 12/21/2019 SUBJECTIVE: The patient has no complaints. States she is doing okay. Does have a little bit of abdominal issue but she notes this has been going on for quite some time and she thinks she may be getting a little constipated. PHYSICAL EXAM: Temperature 97.8, pulse 79, respiratory rate 18, BP 149/83.General: Patient is awake and pleasant. She is in no distress. HEENT: Normocephalic. Neck: Supple. Cardiovascular: Regular rate. Chest: Clear. Abdomen: Soft. Extremities: Moves all extremities. Neurologic: No deficits. ASSESSMENT: 1. Hypertension. 2. History of Zenker diverticulum. 3. Chronic malnutrition. 4. Generalized weakness and debilitative state. PLAN: We will continue the patient in the hospital. We will check a KUB and we will follow. Hopefully to rehab soon. cc: Gurinder Wills MD MTDD
--- NOTE | 2019-12-21 18:00 | PROGRESS NOTE ---
DATE: 12/21/2019 SUBJECTIVE: The patient notes that she is feeling okay. She is having some mild abdominal complaints and thinks that she may be constipated. PHYSICAL: Vital signs: Reviewed. Temp 97.8 degrees, pulse 79, respiratory rate 18, BP 149/83. General: Patient is very pleasant. She is in no distress. HEENT: Normocephalic. Neck: Supple. CV: Regular rate. Chest: Clear. Abdomen: Soft. Extremities: Moves all extremities. ASSESSMENT: 1. Zenker's diverticula. 2. Adult failure to thrive with generalized weakness. 3. Hypertension. 4. Moderate protein-calorie malnutrition. PLAN: 1. We are going to continue the patient on tube feeds. 2. Continue physical therapy as tolerated and we will follow. Hopefully to rehab soon. We will check a KUB. -2 cc: Gurinder Wills MD
[2019-12-21] MEDS: ZOCOR PEG SCH (22:18)
[2019-12-21] MEDS: MELATONIN PEG SCH (22:18)
[2019-12-21] MEDS: XANAX GT PRN (22:19)
[2019-12-22] MEDS: REGLAN PEG SCH ×4 (01:13→22:14)
[2019-12-22] MEDS: TYLENOL PEG PRN ×2 (04:56→22:14)
[2019-12-22] MEDS: PRILOSEC PEG SCH (06:03)
[2019-12-22] MEDS: THERA M PLUS PO SCH (09:53)
[2019-12-22] MEDS: TAPAZOLE PEG SCH ×3 (09:53→22:15)
[2019-12-22] MEDS: DULCOLAX PR SCH (09:53)
[2019-12-22] MEDS: RESTASIS 0.05% OPH DROPS BOTH EYES SCH ×2 (09:53→22:15)
[2019-12-22] MEDS: CARAFATE PEG SCH ×2 (09:53→22:13)
[2019-12-22] MEDS: COZAAR PEG SCH (10:03)
[2019-12-22] MEDS: NORVASC PEG SCH (10:03)
--- NOTE | 2019-12-22 18:20 | PROGRESS NOTE ---
DATE: 12/22/2019 SUBJECTIVE: Patient with no new complaints. States she is doing okay. States she is excited about getting to go to rehab soon. PHYSICAL EXAMINATION: Vital Signs: Temperature 98 degrees, pulse 70, respiratory rate 18, BP 128/56. General: Patient is pleasant. She is in no acute distress. HEENT: Normocephalic. Neck: Supple. Cardiovascular: Regular rhythm and rate. Chest: Clear. Abdomen: Soft. Neurologic: No changes. ASSESSMENT: 1. Dysphagia. 2. Dysarthric speech from previous stroke. 3. Bilateral pneumonia. 4. Adult failure to thrive with generalized weakness. 5. Hyperthyroidism. 6. Generalized weakness. 7. Hyponatremia resolved. PLAN: We are going to continue patient in the hospital. Continue to follow further orders as needed. cc: Gurinder Wills MD
[2019-12-22] MEDS: ZOCOR PEG SCH (22:14)
[2019-12-22] MEDS: XANAX GT PRN (22:14)
[2019-12-22] MEDS: MELATONIN PEG SCH (22:15)
[2019-12-23] MEDS: DULCOLAX PR SCH ×2 (00:45→08:46)
[2019-12-23] MEDS: REGLAN PEG SCH ×4 (06:06→23:21)
[2019-12-23] MEDS: PRILOSEC PEG SCH ×2 (06:31→08:45)
[2019-12-23] MEDS: COZAAR PEG SCH (08:45)
[2019-12-23] MEDS: THERA M PLUS PO SCH (08:45)
[2019-12-23] MEDS: XANAX GT PRN ×2 (08:45→23:22)
[2019-12-23] MEDS: TAPAZOLE PEG SCH ×3 (08:45→23:20)
[2019-12-23] MEDS: NORVASC PEG SCH (08:45)
[2019-12-23] MEDS: TYLENOL PEG PRN ×2 (08:45→23:21)
[2019-12-23] MEDS: CARAFATE PEG SCH ×2 (08:45→23:21)
[2019-12-23] MEDS: RESTASIS 0.05% OPH DROPS BOTH EYES SCH ×2 (08:46→23:20)
--- NOTE | 2019-12-23 18:10 | PROGRESS NOTE ---
DATE: 12/23/2019 SUBJECTIVE: Patient with no complaints. PHYSICAL: Vital Signs: Reviewed. Temperature 98 degrees, pulse 78, respiratory rate 18, BP 125/51. General: Patient is pleasant. She is in no distress. HEENT: Normocephalic. Neck: Supple. Cardiovascular: Regular rate. Chest: Clear. Abdomen: Soft. ASSESSMENT: 1. Generalized weakness. We are still awaiting approval from the state to transition to rehab. 2. Hyperthyroidism. 3. Dysphagia secondary to Zenker's diverticulum. 4. Increased nausea. 5. Chronic malnutrition, stable. PLAN: Continue patient in the hospital. Continue to follow and await the opportunity to transition to rehab. cc: Gurinder Wills MD MTDD
[2019-12-23] MEDS: ZOCOR PEG SCH (23:21)
[2019-12-23] MEDS: MELATONIN PEG SCH (23:21)
[2019-12-24] MEDS: PRILOSEC PEG SCH (07:28)
[2019-12-24] MEDS: DULCOLAX PR SCH ×3 (07:28→23:24)
[2019-12-24] MEDS: REGLAN PEG SCH ×4 (07:29→23:23)
[2019-12-24] MEDS: CARAFATE PEG SCH ×2 (08:08→23:26)
[2019-12-24] MEDS: COZAAR PEG SCH (08:08)
[2019-12-24] MEDS: NORVASC PEG SCH (08:08)
[2019-12-24] MEDS: TAPAZOLE PEG SCH ×3 (08:08→23:22)
[2019-12-24] MEDS: TYLENOL PEG PRN ×2 (08:08→23:23)
[2019-12-24] MEDS: RESTASIS 0.05% OPH DROPS BOTH EYES SCH ×2 (08:09→23:24)
[2019-12-24] MEDS: THERA M PLUS PO SCH (08:09)
--- NOTE | 2019-12-24 20:00 | PROGRESS NOTE ---
DATE: 12/24/2019 SUBJECTIVE: The patient with no complaints. States that she is feeling okay. She is ready to transition to long-term care. PHYSICAL EXAMINATION: Vital Signs: Reviewed. General: She is awake. She is in no distress. HEENT: Normocephalic. Neck: Supple. Cardiovascular: Regular rate. Chest: Clear. Nonlabored. No wheezing. Abdomen: Soft, nondistended. Extremities: Generalized weakness, but does move all extremities. ASSESSMENT: 1. Generalized weakness. 2. Hypothyroidism. 3. Dysphagia secondary to Zenker's diverticulum. 4. Increased generalized weakness. 5. Chronic malnutrition. Stable. PLAN: We are going to continue the patient in the hospital. Continue to follow. Hopefully she can transition to rehab soon. cc: Gurinder Wills MD
[2019-12-24] MEDS: MELATONIN PEG SCH (23:21)
[2019-12-24] MEDS: XANAX GT PRN (23:21)
[2019-12-24] MEDS: ZOCOR PEG SCH (23:21)
[2019-12-25] MEDS: PRILOSEC PEG SCH (07:45)
[2019-12-25] MEDS: REGLAN PEG SCH ×4 (07:45→22:36)
[2019-12-25] MEDS: THERA M PLUS PO SCH (08:47)
[2019-12-25] MEDS: CARAFATE PEG SCH ×2 (08:47→22:36)
[2019-12-25] MEDS: COZAAR PEG SCH (08:47)
[2019-12-25] MEDS: NORVASC PEG SCH (08:47)
[2019-12-25] MEDS: DULCOLAX PR SCH ×2 (08:47→22:36)
[2019-12-25] MEDS: TAPAZOLE PEG SCH ×4 (08:47→22:37)
[2019-12-25] MEDS: RESTASIS 0.05% OPH DROPS BOTH EYES SCH ×2 (08:47→22:37)
[2019-12-25] MEDS: TYLENOL PEG PRN ×2 (08:47→22:37)
--- NOTE | 2019-12-25 18:53 | PROGRESS NOTE ---
DATE: 11/24/2020 SUBJECTIVE: Patient has no new complaints. She is okay. OBJECTIVE: Vital signs: Reviewed. Temperature 98 degrees, pulse 85, respiratory rate 18, BP 151/80. General: Patient is pleasant. She is in no distress. Neck: Supple. Cardiovascular: Regular rate. Chest: Clear. Abdomen: Soft. ASSESSMENT: 1. Acute hemorrhagic episode secondary to deep venous thrombosis prophylaxis, resolved. 2. Bilateral pneumonia, resolved. 3. Generalized weakness with adult failure to thrive. 4. Dysphagia secondary to Zenker diverticulum, continues to be problematic despite surgical intervention. 5. Thyrotoxicosis. Continue methimazole. PLAN: We are going to continue to follow, hopefully to rehab soon. cc: Gurinder Wills MD
[2019-12-25] MEDS: ZOCOR PEG SCH (22:37)
[2019-12-25] MEDS: MELATONIN PEG SCH (22:37)
[2019-12-25] MEDS: XANAX GT PRN (22:38)
[2019-12-26] MEDS: REGLAN PEG SCH ×2 (02:02→08:39)
[2019-12-26 07:38] VITALS: BP 125/65
[2019-12-26] MEDS: TYLENOL PEG PRN (08:38)
[2019-12-26] MEDS: COZAAR PEG SCH (08:38)
[2019-12-26] MEDS: CARAFATE PEG SCH (08:38)
[2019-12-26] MEDS: XANAX GT PRN (08:38)
[2019-12-26] MEDS: TAPAZOLE PEG SCH (08:39)
[2019-12-26] MEDS: PRILOSEC PEG SCH (08:39)
[2019-12-26] MEDS: NORVASC PEG SCH (08:39)
[2019-12-26] MEDS: THERA M PLUS PO SCH (08:39)
[2019-12-26] MEDS: RESTASIS 0.05% OPH DROPS BOTH EYES SCH (08:40)
--- NOTE | 2019-12-26 08:46 | DISCHARGE SUMMARY ---
ADMISSION DATE: 11/19/2019 DISCHARGE DATE: 12/26/2019 PRIMARY CARE PHYSICIAN: Dr. Wills. ADMISSION DIAGNOSES: 1. Pneumonia treated as a healthcare acquired as she was just recently released from rehab. 2. Hypertension. 3. Generalized weakness. 4. Fluid volume depletion. 5. Abdominal pain with constipation. DISCHARGE DIAGNOSES: 1. Hyperthyroidism. 2. Generalized weakness with adult failure to thrive. 3. Bilateral pneumonia, resolved. 4. Depression. 5. Adult failure to thrive with generalized weakness, receiving feedings through a percutaneous endoscopic gastrostomy tube. SUMMARY OF FINDINGS: A 74-year-old female who presented to the emergency room after she had completed a 21 day rehab stay and had been recently discharged home, but states that she had become more weak with generalized weakness and some abdominal pain. She had a scan of her abdomen and pelvis that showed infiltrates consistent with pneumonia in her lung bases. Then, constipation with a significant rectal stool impaction. She was disimpacted in the emergency room and given an enema. She was admitted, placed on antibiotics, breathing treatments. Her urine culture grew out an enterococcus faecalis that was treated appropriately. Her pneumonia had been treated appropriately. Due to her depression she required a State screening. That has been completed and it is now felt that she can safely be discharged to rehab. DISCHARGE MEDICATIONS: Discharge medications include 1. Tylenol 650 mg p.o. q.6 hours p.r.n. 2. Xanax 0.25 p.o. t.i.d. p.r.n. 3. Amlodipine 10 mg p.o. daily. 4. Losartan 100 mg p.o. daily. 5. Melatonin 5 mg p.o. daily. 6. Methimazole 5 mg p.o. b.i.d. 7. Metoclopramide 10 mg p.o. q.6 hours. 8. Multivitamin 1 p.o. daily. 9. Omeprazole 40 mg p.o. daily. 10. MiraLAX 17 g p.o. b.i.d. p.r.n. 11. Simvastatin 20 mg p.o. daily. 12. Adrenolate capsule 1 p.o. daily. 13. Carafate 1 g p.o. b.i.d. 14. Celexa 40 mg p.o. daily. 15. Restasis 1 dose topically as directed. 16. Mucinex DM 1 p.o. b.i.d. p.r.n. 17. Robaxin 500 mg p.o. t.i.d. p.r.n. 18. Metoprolol 25 mg p.o. daily. 19. Detrol LA 2 mg p.o. daily. FOLLOWUP: She will follow up with her primary care physician once she has completed her rehab stay. This a 35 minute discharge. Dictated by CHIRAG Poon for Gurinder Wills MD cc: CHIRAG Poon MD
[2019-12-26] MEDS: DULCOLAX PR SCH (09:02)
--- NOTE | 2019-12-27 03:38 | DISCHARGE SUMMARY ---
ADMISSION DATE: 11/19/2019 DISCHARGE DATE: 12/26/2019 ADDENDUM: Patient seen and examined by myself. Full note dictated and discussed with nurse practitioner. On discharge, patient is awake, alert, in no distress. We are going to transition her to rehab. Please see full note. cc: Gurinder Wills MD
== END 2019-12-26 10:04 | DRG 178 ==
LOC: SUPCPDRO → ED 17:27 → SUATTDRO 11-19 02:10 → 2N 11-19 02:10 → 3N 11-19 15:09 → P.MEDSURG 11-29 17:43
PROVIDERS: ATTEND Family Medicine